=== PATIENT | male | born 1960 | race Caucasian/White ===

== ENCOUNTER 2017-08-01 21:12 | Inpatient (IN) | payer BC, MEDICAID, SELFPAY ==
[2017-08-01 21:14] VITALS: BP 128/92; PULSE 108; RESP 20; TEMP 38; O2SAT 90; BMI 21.3
--- NOTE | 2017-08-01 21:28 | EKG12_ITS ---
Test Reason : CP Blood Pressure : / mmHG Vent. Rate : 108 BPM Atrial Rate : 108 BPM P-R Int : 124 ms QRS Dur : 086 ms QT Int : 318 ms P-R-T Axes : 061 013 065 degrees QTc Int : 426 ms Sinus tachycardia Otherwise normal ECG Confirmed by CHICHI LORENZO, BREE ([id number]), telegraph editor DORINDA SMALLWOOD ([id number] on 08/04/2017 12:51:03 PM Referred By: JAMES Confirmed By:BREE CADET MD
--- NOTE | 2017-08-01 21:28 | RAD_ITS ---
STUDY: X-RAY CHEST REASON FOR EXAM: Male, 57 years old. Fever and cough. TECHNIQUE: Frontal and lateral views of the chest. COMPARISON: None. FINDINGS: Normal lung volumes. Poorly defined increased density in both lung bases, right worse than left and most pronounced on the lateral view. Findings are consistent with atelectasis or infiltrates. No effusions. Normal size heart. Normal mediastinum and delia. Normal visualized pulmonary arteries. Normal visualized aortic arch and descending thoracic aorta. Normal visualized thoracic spine. Normal visualized ribs, clavicles, and shoulders. There is no demonstrated abnormality of the visualized soft tissue structures of the upper abdomen. RAD/Chest PA and Lateral IMPRESSION: Poorly defined increased density in both lung bases, right worse than left and most pronounced on the lateral view. Findings are consistent with atelectasis or infiltrates. Electronically Signed: Valentin Michaud MD at 22:18 EDT , Service support ,
[2017-08-01 21:39] VITALS: PULSE 102; RESP 16
[2017-08-01] MEDS: Ipratropium/Albuterol Sulfate 3 ML AMPUL.NEB INHALATION (21:39)
[2017-08-01 21:47] VITALS: BP 127/79; PULSE 110; RESP 18; O2SAT 93
[2017-08-01] MEDS: 0.9% Normal Saline 1,000 ML 999 ML IV (21:53)
[2017-08-01] MEDS: MethylPREDNISolone 125 MG/2 ML Vial IV (21:53)
[2017-08-01 22:09] LABS: Absolute Lymphocyte Count 1.58 X10^3/ul (0.83-4.51); Absolute Neutrophil Count 11.6 X10^3/uL (2.0-7.7); Basophil# 0.02 X10^3/uL; Basophil% 0.1 % (0-1); Hematocrit 41.2 % (40-54); Hemoglobin 13.9 g/dl (13.0-16.5); Lymphocyte # 1.58 X10^3/ul (4.0); Mean Corp Hgb Conc 33.7 g/gl (32-36); Mean Corpuscular Hgb 29.6 pg (27.0-32.0); Mean Corpuscular Volume 87.7 fL (80-94); Mean Platelet Vol. 11.1 fl (6.2-12.0); Monocyte# 1.11 X10^3/uL; Monocyte% 7.8 % (0-10); Neutrophil # 11.56 X10^3/uL (2.7-7.7); Neutrophil % 80.8 % (47-70); POSITIVE COUNT NO; POSITIVE DIFFERENTIAL NO; POSITIVE MORPHOLOGY NO; Platelet Count 192 K/mm3 (150-450); RBC Distribution Width CV 12.2 % (11.6-14.6); RBC Distribution Width SD 38.8 fl (35.1-43.9); White Blood Count 14.3 K/mm3 (4.4-11.0)
[2017-08-01 22:35] VITALS: BP 127/82; PULSE 103; RESP 20; O2SAT 93
[2017-08-01 22:39] LABS: Anion Gap 9 (5-15); BUN 25 mg/dL (7-18); BUN/Creat Ratio 19.5 RATIO (10-20); Calcium,Total 8.5 mg/dL (8.5-10.1); Chloride 102 mmol/L (98-107); Creatinine, Serum 1.28 mg/dL (0.70-1.30); EST Glomerular Filtration Rate 62 mL/min (>60); Est Glom Filt Rate - Afr Amer 75 mL/min (>60); Estimated Creatinine Clearance 62.16 ml/min; Glucose 141 mg/dL (74-106); Potassium 3.5 mmol/L (3.5-5.1); Sodium Level 137 mmol/L (136-145)
[2017-08-01 22:42] LABS: Lactic Acid 1.4 mmol/L (0.4-2.0)
[2017-08-01] MEDS: Ceftriaxone 1 GM/50 ML BAG IV (23:12)
[2017-08-01 23:14] VITALS: BP 121/77; PULSE 103; RESP 15; O2SAT 92
--- NOTE | 2017-08-01 23:33 | PCM.HP.STD ---
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 He had intermittent fevers chills with highest 103 Fahrenheit today. Patient also complained of sore throat. In ED, was noted to have tachycardia; 110/min, tachypnea; 22/min and hypoxia 93% on 2 L of oxygen. Chest x-ray reviewed and shows bilateral densities at both lung base, right worse than left. EKG mild sinus tachycardia at 108/min with nonspecific ST-T changes. QTc 426 ms. [] Past Medical History Past Medical History (Chronic Problems): Chronic Problems COPD/asthmatic bronchitis (Chronic) Chronic sinusitis (Chronic) Anxiety and depression (Chronic) Allergies aspirin Allergy (Verified 08/01/17 21:17) asthmatic reaction Home Medications: Ambulatory Orders Medication Instructions Recorded Albuterol Inhaler [Ventolin Hfa 1 - 2 puff INHALATION Q4H PRN PRN 08/17/16 (SP)] Lamotrigine [Lamictal] 200 mg PO DAILY 08/17/16 Quetiapine Fumarate [Seroquel Xr] 200 mg PO QHS 08/17/16 Oxycodone HCl/Acetaminophen 1 - 2 tablet PO Q4H PRN PRN #30 08/19/16 [Percocet 5/325] tablet Doxepin HCl 50 mg PO QHS PRN PRN 08/01/17 Fluticasone/Vilanterol [Breo 1 puff INHALATION DAILY 08/01/17 Ellipta 200-25 Mcg INH] Smoking Status: Never smoker - *Family History Paternal History Items: No pertinent history Review of Systems Constitutional: Reports: Chills, Fever, Malaise, Weakness, Fatigue. Denies: Weight Change HEENT: Reports: Sinus Congestion, Sinus Drainage, Sore Throat. Denies: Head Aches Cardiovascular: Denies: Chest Pain, Palpitations Respiratory: Reports: Cough, Shortness of breath at rest, Shortness of breath upon exertion, Sputum production Gastrointestinal: Denies: Abdominal Pain, Nausea, Vomiting Genitourinary: Denies: Dysuria Musculoskeletal: Denies: Joint Pain, Joint Tenderness Skin: Denies: Rash, Wounds Neurological: Denies: Numbness, Tingling, Focal weakness Psychiatric: Denies: Anxiety, Depression, Homicidal Ideations, Suicidal Ideations Hematologic/ Lymphatic: Denies: Easy Bruising, Easy Bleeding VTE Information - Inpt Only VTE Present on Admission: No VTE Mechan Device Prophylaxis: SCD's VTE Pharm Prophylaxis ordered?: Yes Patient Problems: Active and Suspected Problems COPD exacerbation (Acute) Bilateral lung bases CAP (Acute) - Physical Exam General: Alert, Oriented x3, Cooperative HEENT: Atraumatic, PERRLA, EOMI, Normocephalic Oral: Dry Mucosa, - - No oral/pharyngeal erythema or exudate Neck: Supple, No JVD, Negative Carotid Bruits Lungs: Diminished, Rhonchi, Short of Breath, Tachypneic, Wheezes Cardiovascular: Regular Rhythm, Normal S1, Normal S2, No murmurs, Tachycardic Abdomen: Bowel Sounds Present, Soft, Non Tender, Non-Distended Extremities: No edema, Capillary Refill Less than 3 Seconds Skin: No rashes, No breakdown Musculoskeletal: No Tenderness to Palpation of Joints or Extremities Neurological: Cranial nerves II-XII grossly intact Psych/Mental Status: Normal Affect, Appropriate Vital Signs Temp Pulse Resp BP Pulse Ox 100.4 F H 103 H 15 121/77 H 92 08/01/17 21:14 08/01/17 23:14 08/01/17 23:14 08/01/17 23:14 08/01/17 23:14 Oxygen Flow Rate (L/min) 2 Oxygen Delivery Method Nasal Cannula Weight: 148 lb 9.465 oz Body Mass Index (BMI) 21.3 Microbiology Past 72 Hours 08/01/17 21:30 Influenza Types A,B Direct FA (EMILY) - Final Mucosa - Nose Laboratory Tests Past 24 Hrs 08/01/17 08/01/17 08/01/17 21:55 21:55 21:55 WBC 14.3 H RBC 4.70 Hgb 13.9 Hct 41.2 MCV 87.7 MCH 29.6 MCHC 33.7 RDW 12.2 RDW Differential 38.8 Plt Count 192 MPV 11.1 Immature Gran % (Auto) 0.300 Neut % (Auto) 80.8 H Lymph % (Auto) 11.0 L [place] % (Auto) 7.8 Eos % (Auto) 0.0 Baso % (Auto) 0.1 Absolute Neuts (auto) 11.6 H Absolute Lymphs (auto) 1.58 Total Counted Not Reportable Sodium 137 Potassium 3.5 Chloride 102 Carbon Dioxide 26.0 Anion Gap 9 BUN 25 H Creatinine 1.28 Estim Creat Clear Calc 62.16 Est GFR (MDRD) Af Amer 75 Est GFR (MDRD) Non-Af 62 BUN/Creatinine Ratio 19.5 Glucose 141 H Lactic Acid 1.4 Calcium 8.5 Assessment/Plan Active and Suspected Problems COPD exacerbation (Acute) Bilateral lung bases CAP (Acute) The patient is a 57 year old M with history of COPD/asthmatic bronchitis and chronic sinusitis, 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 He had intermittent fevers chills with highest 103 Fahrenheit today. Patient also complained of sore throat. In ED, was noted to have tachycardia; 110/min, tachypnea; 22/min and hypoxia 93% on 2 L of oxygen. Chest x-ray reviewed and shows bilateral densities at both lung base, right worse than left. EKG mild sinus tachycardia at 108/min with nonspecific ST-T changes. QTc 426 ms. 1. Acute hypoxic respiratory failure secondary to bilateral lung bases community acquired pneumonia/and COPD exacerbation: Patient is being admitted on the regular floor. Oxygen therapy as per protocol. 2. SIRS ( tachycardia; 110/min, tachypnea; 22/min and hypoxia 93% on 2 L of oxygen, leukocytosis with left shift) due to bilateral lung bases, community acquired pneumonia: Lactic acid is normal. Patient started on IV Rocephin and Zithromax. Patient is also on anti-depression medications including Seroquel DAILY and doxepin as needed for insomnia. QTc is 426 ms. EKG ordered for tomorrow evening. If QTC prolongation, discontinue Zithromax and start Doxy. Pneumonia workup ordered including blood cultures ?2, sputum culture and urinary antigens. Influenza a and B are negative. 3. COPD exacerbation with history of COPD/asthmatic bronchitis: On bronchodilator DuoNeb, scheduled every 4 hourly and albuterol as needed. On IV Solu-Medrol. Incentive spirometry and chest physiotherapy and Mucinex. Hypoglycemia 141: A1c tomorrow a.m. 4. History of anxiety and depression: On Seroquel and doxepin as needed as mentioned above DVT prophylaxis: Lovenox and bilateral SCDs. [] Microbiology Past 72 Hours 08/01/17 21:30 Mucosa - Nose Influenza Types A,B Direct FA (EMILY) - Final Laboratory Results 08/01/17 21:55: WBC 14.3 H, RBC 4.70, Hgb 13.9, Hct 41.2, MCV 87.7, MCH 29.6, MCHC 33.7, RDW 12.2, RDW Differential 38.8, Plt Count 192, MPV 11.1, Immature Gran % (Auto) 0.300, Neut % (Auto) 80.8 H, Lymph % (Auto) 11.0 L, [place] % (Auto) 7.8, Eos % (Auto) 0.0, Baso % (Auto) 0.1, Absolute Neuts (auto) 11.6 H, Absolute Lymphs (auto) 1.58, Total Counted Not Reportable 08/01/17 21:55: Sodium 137, Potassium 3.5, Chloride 102, Carbon Dioxide 26.0, Anion Gap 9, BUN 25 H, Creatinine 1.28, Estim Creat Clear Calc 62.16, Est GFR (MDRD) Af Amer 75, Est GFR (MDRD) Non-Af 62, BUN/Creatinine Ratio 19.5, Glucose 141 H, Calcium 8.5 08/01/17 21:55: Lactic Acid 1.4 Clinical Impression(s) from Imaging Studies Chest X-Ray 08/01/17 21:28 IMPRESSION: Poorly defined increased density in both lung bases, right worse than left and most pronounced on the lateral view. Findings are consistent with atelectasis or infiltrates. This note was generated with [employer] dictation software. Every effort was made to ensure accuracy, however computerized other sales support worker mistakes may persist. Code Visit Inpatient E&M: 02909 Subs Hosp L3
[2017-08-01 23:36] VITALS: BP 121/77; PULSE 103; RESP 20; O2SAT 92
[2017-08-01] MEDS: QUEtiapine 100 MG Tablet 200 MG PO (23:50)
--- NOTE | 2017-08-01 23:50 | ED.VISSUMM ---
- ER Visit Summary Date of Service: 08/01/17 Chief Complaint: Cough History of Present Illness: The patient is a 57 M who goes to [facility]. He sees Dr. Borges, neurology. He reports that he has a cough began approximately 1 week ago. Is productive of clear sputum without blood. He reports he had a fever to 103?. Is also had chills and sweats. Reports that he has moderate to severe shortness of breath and has been wheezing. He is using his inhaler with mild and transient relief. States he has a sore throat is 2 out of 10 severity and generalized weakness. Also complains of myalgias. Physical Examination: Vitals: 100.4, 127/82, 103, 20, 90% on room air which is hypoxic. General: Well-nourished and well-developed. Head: Normocephalic atraumatic. Neck: Supple, no lymphadenopathy. No JVD. Nontender. Cardiovascular: Tachycardic regular rhythm. No murmurs. Respiratory: No respiratory distress. Mild wheezing bilaterally with decreased air movement. Abdominal: Soft, nontender, nondistended, normal bowel sounds. No guarding, rebound, or peritoneal signs. Back: Nontender. Extremities: Nontender, no edema. Skin: Normal color, no rash. Neurologic: Alert and oriented ?3. Cranial nerves II through XII are intact. Normal strength and sensation. Psych: Normal affect. Test Results: Chest x-ray shows bilateral lower lobe infiltrates right greater than left. EKG sinus tachycardia [address] changes. Influenza is negative. Lactic acid is 1.4. Chem-7 is more for BUN of 25 and glucose 141. CBC is marked for white count of 14.3 with 81 segmented neutrophils and 11 lymphocytes. Emergency Department Course and Treatment: She was treated albuterol Atrovent aerosols. He is given Solu-Medrol IV. Is given Rocephin and Zithromax IV. He is resting comfortably. Treatment Plan: The patient was discussed with Dr. Saunders. He will be admitted to the hospital for further relation and treatment. Disposition: Admitted in improved condition. Impression: 1. Pneumonia, community-acquired. 2. Hypoxia. This note was generated with [employer]ation software. It may contain incorrect words, spelling, and punctuation that were not noted in review of the chart prior to signing ED Disposition - Plan for ED Patient: Chief Complaint: General Illness
[2017-08-02] VITALS (12 sets, daily range): BP systolic 109–140; BP diastolic 68–81; PULSE 66–98; RESP 14–20; TEMP 36.3–37.2; O2SAT 93–98; BMI 21.3
[2017-08-02] MEDS: Enoxaparin 40 MG/0.4 ML Syringe SC (01:04)
[2017-08-02] MEDS: 0.9% Normal Saline 1,000 ML 100 ML IV (01:05)
[2017-08-02 01:07] LABS: Color, Urine Yellow (Yellow); Glucose, Dipstick 50 mg/dl (Normal); Ketone-Dipstick Negative (Negative); Leukocyte Esterase-Dipstick Negative /ul (Negative); Nitrite-Dipstick Negative (Negative); Occult Blood-Urine Negative /ul (Negative); Protein-Dipstick Negative (Negative); Urine Bilirubin Dipstick Negative (Negative); Urine Clarity Clear (Clear); Urine Urobilinogen Normal (Normal); Urine pH 6.5 (5.0 - 8.0)
[2017-08-02] MEDS: Ipratropium/Albuterol Sulfate 3 ML AMPUL.NEB INHALATION ×4 (06:38→19:41)
--- NOTE | 2017-08-02 09:08 | PCM.PN.HOSP ---
Patient Problems: Active and Suspected Problems COPD exacerbation (Acute) Bilateral lung bases CAP (Acute) Subjective: Patient with no acute events since admission per self and per nursing report. He states that he does feel improved since initial presentation with less coughing and less shortness of breath. He denies being on oxygen at home baseline. He does follow with pulmonary at [facility]. He denies any tobacco use history but states he was raised in a restaurant with heavy tobacco smoke around him. Patient denies fevers, chills, nausea, emesis, abdominal pain, chest pain or recurrent or worsened dyspnea. Objective: Physical Examination: General: awake, alert, oriented x 3 and cooperative, seated upright in bed in no apparent distress. Skin: normal color, turgor, no icterus, cyanosis. HEENT: AT/NC, EOMI, PERRLA, mildly dry MM. Lungs: Severely diffusely diminished, > bases, mild to moderate effort, no rales, ronchi or wheezing. Heart: Regular rate and rhythm; no gallop, rub audible. Abdomen: soft, NTTP, ND, normal BS. Extremities: no cyanosis, clubbing, or edema. Neurological: patient awake, alert, oriented x 3; cognitive function intact; pupils equally reactive to light and accomodation; cranial nerves II-XII grossly normal, moving all 4 extremities, no focal deficits, strength moderately globally decreased secondary to acute presentation. Psychiatric: affect appears fatigued, no acute evidence of depressive or anxiety feelings. Vitals/I&O's: Vital Signs Temp Pulse Resp BP Pulse Ox 97.4 F L 98 18 109/75 95 08/02/17 06:00 08/02/17 06:38 08/02/17 06:38 08/02/17 06:00 08/02/17 06:38 Oxygen Flow Rate (L/min) 1 Oxygen Delivery Method Nasal Cannula Weight: 148 lb 9.465 oz Body Mass Index (BMI) 21.3 Intake and Output for Last 24 Hours 07/31/17 08/01/17 08/02/17 23:59 23:59 23:59 Intake Total 638 / 638 Balance 638 / 638 Microbiology Past 72 Hours 08/02/17 00:50 Interface Orders Legionella Antigen - Final 08/02/17 00:50 Interface Orders Streptococcus pneumoniae Antigen (M - Final Laboratory Results 08/02/17 00:50: Urine Color Yellow, Urine Clarity Clear, Urine pH 6.5, Ur Specific [place] 1.010, Urine Protein Negative, Urine Glucose (UA) 50 H, Urine Ketones Negative, Urine Occult Blood Negative, Urine Nitrite Negative, Urine Bilirubin Negative, Urine Urobilinogen Normal, Ur Leukocyte Esterase Negative Current Medications Acetaminophen (Tylenol) 650 mg PO Q4H PRN PRN PRN Reason: Fever/pain Al Hydroxide/Mg Hydroxide (Mylanta Ii) 30 ml PO Q6H PRN PRN PRN Reason: Gastric Burning Albuterol Sulfate (Ventolin Aerosols) 2.5 mg INHALATION Q2H PRN PRN PRN Reason: SHORTNESS OF BREATH Albuterol/Ipratropium (Duoneb) 3 ml INHALATION Q4HWA.RT [facility] Last Admin: 08/02/17 06:38 Dose: 3 ml Benzonatate (Tessalon Perle) 200 mg PO TID [facility] Last Admin: 08/02/17 06:09 Dose: Not Given Bisacodyl (Dulcolax) 10 mg RECTAL DAILY PRN PRN PRN Reason: Constipation Docusate Sodium (Colace) 200 mg PO BID PRN PRN PRN Reason: Constipation Enoxaparin Sodium (Lovenox) 40 mg SC DAILY [facility] Last Admin: 08/02/17 01:04 Dose: 40 mg Famotidine (Pepcid) 20 mg PO BID [facility] Guaifenesin (Mucinex) 1,200 mg PO BID [facility] Sodium Chloride () 1,000 mls @ 100 mls/hr IV .Q10H [facility] Stop: 08/02/17 10:09 Last Admin: 08/02/17 01:05 Dose: 100 mls/hr Azithromycin 500 mg/ Dextrose 255 mls @ 250 mls/hr IV Q24 [facility] Stop: 08/04/17 11:02 Ceftriaxone Sodium (Rocephin) 1 gm in 50 mls @ 100 mls/hr IV Q24 [facility] Sodium Chloride () 250 mls @ 15 mls/hr IV .[id number] PRN PRN Reason: SALINE FLUSH Lamotrigine (Lamictal) 200 mg PO DAILY [facility] Methylprednisolone (Solu-Medrol) 40 mg IV Q8 [facility] Last Admin: 08/02/17 06:08 Dose: 40 mg Ondansetron HCl (Zofran) 4 mg IV Q8H PRN PRN PRN Reason: NAUSEA Oxycodone HCl (Oxyir) 5 - 10 mg PO Q4H PRN PRN PRN Reason: PAIN Quetiapine Fumarate (Seroquel) 100 mg PO BID [place] Sodium Chloride () 5 - 30 ml IV UD PRN PRN Reason: SALINE FLUSH Medical Necessity - Tobacco Use Smoking Status: Never smoker Tobacco Use: Secondhand Assessment/Plan Active and Suspected Problems COPD exacerbation (Acute) Bilateral lung bases CAP (Acute) The patient is a 57 y/o M w/ PMHx: Notable 2nd Hand Tobacco Exposure Prolonged w/ Chronic COPD/Asthma, Anxiety and Depression/Bipolar Disorder, Chronic Sinusitis who presents to the [facility] ED on 08/01/17 with history of onset 1 week progressively worsening dyspnea, mildly productive cough with wheezing in addition to intermittent fevers and chills. (1) Acute Hypoxic Respiratory Failure secondary to Acute on Chronic COPD/Asthma Exacerbation secondary to Community Acquired Pneumonia: Initial ED presentation w/ hypoxia, increased RR, accessory muscle usage, respiratory distress evident. CXR in the ED w/ bilateral lower lobe, right greater than left infiltrates concerning for pneumonia. Admission CBC w/ WBC 14.3 with L shift. Admitted to [place], maintained on oxygen with wean as tolerated to room air/home oxygen supplementation, continue ATC duonebs, PRN albuterol, maintain on IV solumedrol with oral transition 08/03/17 AM pending re-evaluation, maintain on IV Rocephin and Azithromycin, HOB, IS parameters w/ pending sputum cultures, negative urine antigens, negative rapid flu, pending respiratory viral panel. Bld cx x 2 obtained in the ED. Will obtain AM oxygenation trial for discharge once clinically appropriate. (2) Anxiety and Depression/Bipolar Disorder: Maintain on home regimen seroquel, lamictal regimen. 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 (4) GERD: Famotidine. (5) DVT Prophylaxis: SCDs, lovenox. Code Visit Inpatient E&M: 96189 Subs Hosp L2
--- NOTE | 2017-08-02 09:16 | PN_ITS ---
Patient Problems: Active and Suspected Problems COPD exacerbation (Acute) Bilateral lung bases CAP (Acute) Subjective: Patient with no acute events since admission per self and per nursing report. He states that he does feel improved since initial presentation with less coughing and less shortness of breath. He denies being on oxygen at home baseline. He does follow with pulmonary at [facility]. He denies any tobacco use history but states he was raised in a restaurant with heavy tobacco smoke around him. Patient denies fevers, chills, nausea, emesis, abdominal pain , chest pain or recurrent or worsened dyspnea. Objective: Physical Examination: General: awake, alert, oriented x 3 and cooperative, seated upright in bed in no apparent distress. Skin: normal color, turgor, no icterus, cyanosis. HEENT: AT/NC, EOMI, PERRLA, mildly dry MM. Lungs: Severely diffusely diminished, > bases, mild to moderate effort, no rales , ronchi or wheezing. Heart: Regular rate and rhythm; no gallop, rub audible. Abdomen: soft, NTTP, ND, normal BS. Extremities: no cyanosis, clubbing, or edema. Neurological: patient awake, alert, oriented x 3; cognitive function intact; pupils equally reactive to light and accomodation; cranial nerves II-XII grossly normal, moving all 4 extremities, no focal deficits, strength moderately globally decreased secondary to acute presentation. Psychiatric: affect appears fatigued, no acute evidence of depressive or anxiety feelings. Vitals/I&O's: Vital Signs Temp Pulse Resp BP Pulse Ox 97.4 F L 98 18 109/75 95 08/02/17 06:00 08/02/17 06:38 08/02/17 06:38 08/02/17 06:00 08/02/17 06:38 Oxygen Flow Rate (L/min) 1 Oxygen Delivery Method Nasal Cannula Weight: 148 lb 9.465 oz Body Mass Index (BMI) 21.3 Intake and Output for Last 24 Hours 07/31/17 08/01/17 08/02/17 23:59 23:59 23:59 Intake Total 638 / 638 Balance 638 / 638 Microbiology Past 72 Hours 08/02/17 00:50 Interface Orders Legionella Antigen - Final 08/02/17 00:50 Interface Orders Streptococcus pneumoniae Antigen (M - Final Laboratory Results 08/02/17 00:50: Urine Color Yellow, Urine Clarity Clear, Urine pH 6.5, Ur Specific [place] 1.010, Urine Protein Negative, Urine Glucose (UA) 50 H, Urine Ketones Negative, Urine Occult Blood Negative, Urine Nitrite Negative, Urine Bilirubin Negative, Urine Urobilinogen Normal, Ur Leukocyte Esterase Negative Current Medications Acetaminophen (Tylenol) 650 mg PO Q4H PRN PRN PRN Reason: Fever/pain Al Hydroxide/Mg Hydroxide (Mylanta Ii) 30 ml PO Q6H PRN PRN PRN Reason: Gastric Burning Albuterol Sulfate (Ventolin Aerosols) 2.5 mg INHALATION Q2H PRN PRN PRN Reason: SHORTNESS OF BREATH Albuterol/Ipratropium (Duoneb) 3 ml INHALATION Q4HWA.RT [facility] Last Admin: 08/02/17 06:38 Dose: 3 ml Benzonatate (Tessalon Perle) 200 mg PO TID [facility] Last Admin: 08/02/17 06:09 Dose: Not Given Bisacodyl (Dulcolax) 10 mg RECTAL DAILY PRN PRN PRN Reason: Constipation Docusate Sodium (Colace) 200 mg PO BID PRN PRN PRN Reason: Constipation Enoxaparin Sodium (Lovenox) 40 mg SC DAILY [facility] Last Admin: 08/02/17 01:04 Dose: 40 mg Famotidine (Pepcid) 20 mg PO BID [facility] Guaifenesin (Mucinex) 1,200 mg PO BID [facility] Sodium Chloride () 1,000 mls @ 100 mls/hr IV .Q10H [facility] Stop: 08/02/17 10:09 Last Admin: 08/02/17 01:05 Dose: 100 mls/hr Azithromycin 500 mg/ Dextrose 255 mls @ 250 mls/hr IV Q24 [facility] Stop: 08/04/17 11:02 Ceftriaxone Sodium (Rocephin) 1 gm in 50 mls @ 100 mls/hr IV Q24 [facility] Sodium Chloride () 250 mls @ 15 mls/hr IV .[id number] PRN PRN Reason: SALINE FLUSH Lamotrigine (Lamictal) 200 mg PO DAILY [facility] Methylprednisolone (Solu-Medrol) 40 mg IV Q8 [facility] Last Admin: 08/02/17 06:08 Dose: 40 mg Ondansetron HCl (Zofran) 4 mg IV Q8H PRN PRN PRN Reason: NAUSEA Oxycodone HCl (Oxyir) 5 - 10 mg PO Q4H PRN PRN PRN Reason: PAIN Quetiapine Fumarate (Seroquel) 100 mg PO BID [facility] Sodium Chloride () 5 - 30 ml IV UD PRN PRN Reason: SALINE FLUSH Medical Necessity - Tobacco Use Smoking Status: Never smoker Tobacco Use: Secondhand Assessment/Plan Active and Suspected Problems COPD exacerbation (Acute) Bilateral lung bases CAP (Acute) The patient is a 57 y/o M w/ PMHx: Notable 2nd Hand Tobacco Exposure Prolonged w / Chronic COPD/Asthma, Anxiety and Depression/Bipolar Disorder, Chronic Sinusitis who presents to the [facility] ED on 08/01/17 with history of onset 1 week progressively worsening dyspnea, mildly productive cough with wheezing in addition to intermittent fevers and chills. (1) Acute Hypoxic Respiratory Failure secondary to Acute on Chronic COPD/Asthma Exacerbation secondary to Community Acquired Pneumonia: Initial ED presentation w/ hypoxia, increased RR, accessory muscle usage, respiratory distress evident. CXR in the ED w/ bilateral lower lobe, right greater than left infiltrates concerning for pneumonia. Admission CBC w/ WBC 14.3 with L shift. Admitted to [place] , maintained on oxygen with wean as tolerated to room air/home oxygen supplementation, continue ATC duonebs, PRN albuterol, maintain on IV solumedrol with oral transition 08/03/17 AM pending re-evaluation, maintain on IV Rocephin and Azithromycin, HOB, IS parameters w/ pending sputum cultures, negative urine antigens, negative rapid flu, pending respiratory viral panel. Bld cx x 2 obtained in the ED. Will obtain AM oxygenation trial for discharge once clinically appropriate. (2) Anxiety and Depression/Bipolar Disorder: Maintain on home regimen seroquel, lamictal regimen. 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 (4) GERD: Famotidine. (5) DVT Prophylaxis: SCDs, lovenox. Code Visit Inpatient E&M: 11835 Subs Hosp L2
[2017-08-02] MEDS: Ceftriaxone 1 GM/50 ML BAG IV (09:41)
[2017-08-02] MEDS: Famotidine 20 MG Tablet PO ×2 (09:42→21:59)
[2017-08-02] MEDS: lamoTRIgine 100 MG Tablet 200 MG PO (09:42)
[2017-08-02] MEDS: guaiFENesin 1,200 MG Tablet 1200 MG PO ×2 (09:42→21:59)
--- NOTE | 2017-08-02 13:26 | CASEMGMT ---
See RN CM Assessment Link. DC PLAN: home -no dc needs identified @ this time. Kadi IRIZARRYN RN ACM
[2017-08-02] MEDS: Benzonatate 100 MG Capsule 200 MG PO ×2 (18:50→21:59)
--- NOTE | 2017-08-02 20:13 | EKG12_ITS ---
Test Reason : MED Blood Pressure : / mmHG Vent. Rate : 077 BPM Atrial Rate : 077 BPM P-R Int : 136 ms QRS Dur : 092 ms QT Int : 380 ms P-R-T Axes : 070 027 056 degrees QTc Int : 430 ms Sinus rhythm with Premature supraventricular complexes Otherwise normal ECG When compared with ECG of 01-AUG-2017 21:25, MANUAL COMPARISON REQUIRED, DATA IS UNCONFIRMED Confirmed by CHICHI LORENZO, BREE ([id number]), commissioning editor DORINDA SMALLWOOD ([id number]) on 08/11/2017 3:53:59 PM Referred By: STONEY Confirmed By:BREE CADET MD
[2017-08-02] MEDS: 0.9% NaCl Peripheral Flush Adult/Peds IV (21:59)
[2017-08-03 03:18] VITALS: BP 116/70; PULSE 72; RESP 16; TEMP 36.5; O2SAT 96
[2017-08-03] MEDS: 0.9% NaCl Peripheral Flush Adult/Peds IV ×2 (06:19→09:12)
[2017-08-03] MEDS: Benzonatate 100 MG Capsule 200 MG PO (06:19)
[2017-08-03] MEDS: Ipratropium/Albuterol Sulfate 3 ML AMPUL.NEB INHALATION ×2 (07:34→11:13)
[2017-08-03 07:36] VITALS: PULSE 79; RESP 16; O2SAT 92
--- NOTE | 2017-08-03 08:31 | PCM.DC ---
- Discharge Diagnoses Current Active Problems: Current Active and Chronic Problems (1) Acute Hypoxic Respiratory Failure secondary to Acute on Chronic COPD/Asthma Exacerbation secondary to Community Acquired Pneumonia and Human Metapneumo viral infection (2) Anxiety and Depression (3) History of Prolonged 2nd Hand Tobacco Exposure (4) GERD You will use the following diet at home:: No restrictions Your food should be the consistency of: Regular Your liquids should be the consistency of: Regular/Thin Discharge Activity: - - Avoid aggressive activity until completed steroid taper and antibiotic therapy as well as re-evaluation per your primary care physician and pulmonary medicine. May resume sexual activity in: 10-14 days Call your doctor if you observe: Fever of 101 or Higher, Inability to urinate, Inability to have a bowel movement, Shortness of breath, Dizziness, Fainting spells, Chest pain, Uncontrolled pain Instructions: What is COPD?, Treatment for COPD, Discharge Instructions: COPD, What Is Pneumonia?, Preventing Pneumonia, Pneumonia Treatment Additional Instructions: Given your symptoms had been ongoing for ~ 1 week prior to presentation, you are likely past the contagious period in regards to the Human metapneumo viral infection; however, please be cautious and if you are still coughing avoid direct contact given your pneumonia and COPD exacerbation concurrently. Please continue antibiotic therapy as well as steroid taper until completed. You may discontinue the coughing regimen if your cough subsides. You may use the albuterol nebulized medication as needed every 2 hours and continue the duoneb instead of your home inhaler x 1 week and then may transition back. Allergies/Adverse Reactions: Allergies aspirin Allergy (Verified 08/01/17 21:17) asthmatic reaction Medications to take at Discharge Albuterol Inhaler [Ventolin Hfa] 1 - 2 puff INHALATION Q4H PRN PRN 08/17/16 Lamotrigine [Lamictal] 200 mg PO DAILY 08/17/16 Quetiapine Fumarate [Seroquel XR] 200 mg PO QHS 08/17/16 Oxycodone HCl/Acetaminophen [Percocet 5-325] 1 - 2 tablet PO Q4H PRN PRN #30 tablet 08/19/16 Doxepin HCl 50 mg PO QHS PRN PRN 08/01/17 Fluticasone/Vilanterol [Breo Ellipta 200-25 Mcg INH] 1 puff INHALATION DAILY 08/01/17 Albuterol Aerosols [Ventolin Aerosols] 2.5 mg INHALATION Q2H PRN PRN #1 box 08/03/17 Azithromycin [Zithromax Tri-Iván] 500 mg PO DAILY #1 tab 08/03/17 Benzonatate [Tessalon Perle] 200 mg PO TID #60 cap 08/03/17 Cefdinir [Omnicef [equiv]] 300 mg PO Q12H #10 cap 08/03/17 Guaifenesin [Mucinex] 1,200 mg PO BID #20 tab 08/03/17 Ipratropium/Albuterol Sulfate [Duoneb] 3 ml INHALATION Q4HWA.RT #1 box 08/03/17 Nebulizer [Lc Plus] 1 ea UD #1 ea 08/03/17 Prednisone 10 mg PO UD #30 tab 08/03/17 The following prescriptions were given: Albuterol Aerosols [Ventolin Aerosols] 2.5 mg INHALATION Q2H PRN PRN #1 box PRN Reason: SHORTNESS OF BREATH Ipratropium/Albuterol Sulfate [Duoneb] 3 ml INHALATION Q4HWA.RT #1 box Azithromycin [Zithromax Tri-Iván] 500 mg PO DAILY #1 tab Cefdinir [Omnicef [equiv]] 300 mg PO Q12H #10 cap Nebulizer [Lc Plus] 1 ea UD #1 ea Prednisone 10 mg PO UD #30 tab Guaifenesin [Mucinex] 1,200 mg PO BID #20 tab Benzonatate [Tessalon Perle] 200 mg PO TID #60 cap Primary Care Physician: Care Physician,No Primary [Primary Care Provider] - Please follow up with your Primary Care Physician in: Follow-up with your primary care within 3-5 days. Please Follow Up With: Thuan Borges MD When: Please follow-up within 1 week to review admission, assure improving. Proposed Discharge Date: 08/03/17
--- NOTE | 2017-08-03 08:45 | DS.PCM_ITS ---
Discharge Date and Diagnosis - Problem List Patient Problems: Active and Suspected Problems COPD exacerbation (Acute) Bilateral lung bases CAP (Acute) Date of Admission: 08/01/17 Date of Discharge: 08/03/17 - Primary Discharge Diagnosis Active and Suspected Problems (1) Acute Hypoxic Respiratory Failure secondary to Acute on Chronic COPD/Asthma Exacerbation secondary to Community Acquired Pneumonia and Human Metapneumo viral infection (2) Anxiety and Depression (3) History of Prolonged 2nd Hand Tobacco Exposure (4) GERD - Secondary Discharge Diagnosis Chronic Problems COPD/asthmatic bronchitis (Chronic) Chronic sinusitis (Chronic) Anxiety and depression (Chronic) Hospital Course and Treatment Operations: None Procedures: EKG Summary of Care Provided: The patient is a 57 y/o M w/ PMHx: Notable 2nd Hand Tobacco Exposure Prolonged w / Chronic COPD/Asthma, Anxiety and Depression/Bipolar Disorder, Chronic Sinusitis who presented to the [facility] ED on 08/01/17 with history of onset 1 week progressively worsening dyspnea, mildly productive cough with wheezing in addition to intermittent fevers and chills. Initial ED presentation w/ hypoxia, increased RR, accessory muscle usage, respiratory distress evident. CXR in the ED w/ bilateral lower lobe, right greater than left infiltrates concerning for pneumonia. Admission CBC w/ WBC 14.3 with L shift. Admitted to [place], maintained on oxygen with wean as tolerated to room air/home oxygen supplementation, continued ATC duonebs, PRN albuterol, maintain on IV solumedrol with oral transition upon discharge, maintained on IV Rocephin and Azithromycin w/ transition to oral upon discharge, HOB, IS parameters, sputum cx obtained but not adequate specimen, negative urine antigens, negative rapid flu, respiratory viral panel resulted w/ + human metapneumo virus. Oxygenation assessment with no need for home O2. Given severity of appearance and underlying pulmonary disease w/ viral infection and COPD exacerbation concurrently with PNA, patient given rx for nebulizer machine and nebulizer regimen. Patient discharged to home in improved condition with ongoing abx therapy, steroid taper, aerosols treatments with planned follow-up with Pulmonary and recommended PCP. DAY OF DISCHARGE PROGRESS NOTE: Subjective: Patient without acute event overnight per self and nursing report. Patient off oxygen, improved dyspnea, able to ambulate without severe dyspnea recurrence. Less coughing. Patient denies fever, chills, nausea, emesis, abdominal pain, chest pain. Patient agreeable to discharge to home. Patient will be discharged with follow-up with encouraged primary care physician follow- up within 3-5 days in addition to Pulmonary follow-up within 1-2 weeks. Objective: T 98.7, heart rate 89, BP 121/73, respiratory rate 16, 92% on room air with ambulation oxygenation 90% on room air. Physical Examination: General: awake, alert, oriented x 3 and cooperative, seated upright in bed in no apparent distress. Skin: normal color, turgor, no icterus, cyanosis. HEENT: AT/NC, EOMI, PERRLA, improved less dry MM. Lungs: Severely diffusely diminished, > bases, mild to moderate effort, no rales , ronchi or wheezing. Heart: Regular rate and rhythm; no gallop, rub audible. Extremities: no cyanosis, clubbing. Neurological: patient awake, alert, oriented x 3; cognitive function intact; pupils equally reactive to light and accomodation; cranial nerves II-XII grossly normal, moving all 4 extremities. Psychiatric: affect appears normalized, less fatigued, no acute evidence of depressive or anxiety feelings. Assessment and Plan: Please see hospital summary above. Discharge Activity: - - Avoid aggressive activity until completed steroid taper and antibiotic therapy as well as re-evaluation per your primary care physician and pulmonary medicine. May resume sexual activity in: 10-14 days Call your doctor if you observe: Fever of 101 or Higher, Inability to urinate, Inability to have a bowel movement, Shortness of breath, Dizziness, Fainting spells, Chest pain, Uncontrolled pain Home Medications: Medications to take at Discharge Albuterol Inhaler [Ventolin Hfa] 1 - 2 puff INHALATION Q4H PRN PRN 08/17/16 Lamotrigine [Lamictal] 200 mg PO DAILY 08/17/16 Quetiapine Fumarate [Seroquel XR] 200 mg PO QHS 08/17/16 Oxycodone HCl/Acetaminophen [Percocet 5-325] 1 - 2 tablet PO Q4H PRN PRN #30 tablet 08/19/16 Doxepin HCl 50 mg PO QHS PRN PRN 08/01/17 Fluticasone/Vilanterol [Breo Ellipta 200-25 Mcg INH] 1 puff INHALATION DAILY Albuterol Aerosols [Ventolin Aerosols] 2.5 mg INHALATION Q2H PRN PRN #1 box Azithromycin [Zithromax Tri-Iván] 500 mg PO DAILY #1 tab 08/03/17 Benzonatate [Tessalon Perle] 200 mg PO TID #60 cap 08/03/17 Cefdinir [Omnicef [equiv]] 300 mg PO Q12H #10 cap 08/03/17 Guaifenesin [Mucinex] 1,200 mg PO BID #20 tab 08/03/17 Ipratropium/Albuterol Sulfate [Duoneb] 3 ml INHALATION Q4HWA.RT #1 box 08/03/17 Nebulizer [Lc Plus] 1 ea MC UD #1 ea 08/03/17 Prednisone 10 mg PO UD #30 tab 08/03/17 Following Prescrptions Were Given to Patient: Albuterol Aerosols [Ventolin Aerosols] 2.5 mg INHALATION Q2H PRN PRN #1 box PRN Reason: SHORTNESS OF BREATH Ipratropium/Albuterol Sulfate [Duoneb] 3 ml INHALATION Q4HWA.RT #1 box Azithromycin [Zithromax Tri-Iván] 500 mg PO DAILY #1 tab Cefdinir [Omnicef [equiv]] 300 mg PO Q12H #10 cap Nebulizer [Lc Plus] 1 ea UD #1 ea Prednisone 10 mg PO UD #30 tab Guaifenesin [Mucinex] 1,200 mg PO BID #20 tab Benzonatate [Tessalon Perle] 200 mg PO TID #60 cap Primary Care Physician: Care Physician,No Primary [Primary Care Provider] - Please follow up with your Primary Care Physician in: Follow-up with your primary care within 3-5 days. Please Follow Up With: Thuan Borges MD When: Please follow-up within 1 week to review admission, assure improving. Patient Instructions: What is COPD?, What Is Pneumonia?, Preventing Pneumonia, Pneumonia Treatment, Discharge Instructions: COPD, Treatment for COPD Disposition: Home Minutes spent on discharge:: 35 Patient Condition:: Fair Medical Necessity - Tobacco Use Smoking Status: Never smoker Tobacco Use: Secondhand Meaningful Use Info Meaningful Use Diagnoses (Choose all that apply): None applicable Code Visit Inpatient E&M: 62504 Disch Hosp
[2017-08-03 08:57] VITALS: O2SAT 90; O2SAT 92
[2017-08-03] MEDS: Ceftriaxone 1 GM/50 ML BAG IV (09:04)
--- NOTE | 2017-08-03 09:06 | CASEMGMT ---
JON VOGEL received script for nebulizer. JON VOGEL discussed preferrred [employer] company with patient and patient is agreeable to [facility]. JON VOGEL will send referral to [facility] and arrange for deliver to patient's home. Walking oxygen test was completed and patient did not qualify for oxygen. JON VOGEL will continue to follow this patient and plan for a safe discharge.
[2017-08-03] MEDS: Famotidine 20 MG Tablet PO (09:11)
[2017-08-03] MEDS: Enoxaparin 40 MG/0.4 ML Syringe SC (09:12)
[2017-08-03] MEDS: lamoTRIgine 100 MG Tablet 200 MG PO (09:16)
[2017-08-03 09:18] VITALS: BP 121/73; PULSE 89; RESP 16; TEMP 37; O2SAT 92
--- NOTE | 2017-08-03 10:40 | CASEMGMT ---
Physician asked to check w/pt about a PCP. SW spoke w/pt, he states he has a PCP at the [facility] assigned to him, but is not certain who it is. Pt states he see specialists, does not go to PCP. Pt declined a need for a list of PCP's, states if he needs to see a PCP he will call [facility]. No further needs anticipated. WILMER Gibbs, CHIEF LOCK OPERATOR
[2017-08-03 11:14] VITALS: PULSE 89; RESP 16
== END 2017-08-03 12:53 | disposition home or self-care (01) | DRG 871 ==
LOC: ED 21:36 → MS2 23:48
PROVIDERS: Admitting Provider Internal Medicine; Emergency Provider Emergency Medicine; Visit Provider Family Medicine
DX: A41.9 Sepsis, unspecified organism (principal); J96.01 Acute respiratory failure with hypoxia; J12.3 Human metapneumovirus pneumonia; J44.0 Chronic obstructive pulmonary disease with (acute) lower respiratory infection; J45.901 Unspecified asthma with (acute) exacerbation; J44.1 Chronic obstructive pulmonary disease with (acute) exacerbation; Z77.22 Contact with and (suspected) exposure to environmental tobacco smoke (acute) (chronic); J32.9 Chronic sinusitis, unspecified; K21.9 Gastro-esophageal reflux disease without esophagitis; F31.9 Bipolar disorder, unspecified; F41.9 Anxiety disorder, unspecified; Z79.899 Other long term (current) drug therapy
CPT/HCPCS: 71046; 80048; 81002; 83605; 85025; 87040; 87070; 87205; 87449; 87633; 87804; 93005; 94640; 94667; 99285; J7030; J7050; A4216

== ENCOUNTER → 2017-12-23 07:06 | Outpatient (CLI) | payer BC, MEDICAID, SELFPAY ==
--- NOTE | 2017-12-23 07:09 | CT_ITS ---
STUDY: CT MAXILLOFACIAL SINUSES REASON FOR EXAM: Male, 57 years old. Chronic sinusitis since 1999. Multiple sinus infections. Sinus surgery x3. RADIATION DOSAGE (If Supplied By Facility): CTDIvol = ( 33.06 ) mGy, DLP = ( 858.64 ) mGycm TECHNIQUE: The patient was scanned in a multi detector CT scanner. High resolution axial imaging was performed without the administration of intravenous contrast material. Sagittal and coronal images were reconstructed. Individualized dose optimization techniques were used for this CT. COMPARISON: 01/01/2016. FINDINGS: FRONTAL SINUSES: Complete obliteration and opacification of the left frontal sinus. Nearly absent right frontal sinus with mucosal thickening of the isolated right frontal sinus air cell. ETHMOIDAL SINUSES: Complete obliteration of the ethmoid sinuses with no visible young of the ethmoid air cells. This is presumably excessive granulation tissue filling of the entire ethmoidectomy site. This is unchanged. MAXILLARY SINUSES: Increase mucosal thickening and/or granulation tissue in the surrounding young of the maxillary sinuses. They communicate with the granulation tissue in the bilateral ethmoidectomy sites. SPHENOIDAL SINUSES: Surgical defects in the anterior young of the sphenoid sinuses. Densely sclerotic with mucosal thickening/granulation tissue and contraction from chronic sinusitis. Postsurgical absence of the osteomeatal units. Postsurgical absence of the middle turbinates. Normal bilateral inferior turbinates. The upper nasal septum is missing. The nasal airway above the inferior turbinates are filled with granulation tissue coming from the bilateral ethmoidectomy sites. The sclerotic remaining young of the paranasal sinuses are from chronic sinusitis. The visualized bilateral orbital contents are normal. CT/Sinus/Facial Bone IMPRESSION: 1. Pronounced chronic sinusitis with excessive regulation tissue filling the bilateral ethmoidectomy sites. They blend imperceptibly with the granulation tissue in the young of the maxillary sinuses, the right frontal sinus and contracted and sclerotic sphenoid sinus. 2. Increased granulation tissue and/or mucosal thickening in the maxillary sinuses when compared to 12/29/2015. Electronically Signed: Ashish Lemus MD at 9:23 EDT , Service support ,
== END ==
PROVIDERS: Visit Provider Otolaryngology
DX: J32.9 Chronic sinusitis, unspecified (principal)
CPT/HCPCS: 70486

== ENCOUNTER → 2018-02-20 06:42 | Outpatient (CLI) | payer BC, MEDICAID, SELFPAY ==
--- NOTE | 2018-02-20 06:50 | MRI_ITS ---
STUDY: MRI ORBITS WITH AND WITHOUT CONTRAST REASON FOR EXAM: Male, 57 years old. SINUS MASS, HEADACHES; HX 3 PRIOR SINUS SURGERIES- MOST RECENT 1OYRS AGO TECHNIQUE: Standardized fat and water weighted pulse sequences were obtained in all 3 orthogonal planes, pre-and post contrast administration. 7 ml of Gadavist contrast material was administered intravenously for the contrast portion of the examination. COMPARISON: January 01, 2016 CT sinuses FINDINGS: Normal bilateral globes. Normal bilateral optic nerve sheath complexes and optic nerves. Normal bilateral intraconal and extraconal spaces. Normal bilateral extraocular muscles. Normal optic chiasm and post-chiasmatic tracts. There is moderate/severe mucosal thickening of the paranasal sinuses most prominent at the ethmoid sinus. There is no evidence of discrete masses. There is no evidence of extra-sinuses extension. MRI/Orbit Face Neck W/WO Contrast IMPRESSION: Severe chronic paranasal sinus disease. No demonstrated masses. Electronically Signed: Stacia Mccullough MD at 8:05 EST Tel , Service support ,
== END ==
PROVIDERS: Referring Provider Otolaryngology; Visit Provider Otolaryngology
DX: J34.89 Other specified disorders of nose and nasal sinuses (principal); R51 Headache
CPT/HCPCS: 70543; A9585

== ENCOUNTER 2018-03-20 09:56 | Day surgery (SDC) | payer BC, MEDICAID, SELFPAY ==
[2018-03-20] VITALS (7 sets, daily range): BP systolic 113–126; BP diastolic 77–87; PULSE 69–82; RESP 16–18; TEMP 36.2–36.6; O2SAT 92–99; BMI 21.9
--- NOTE | 2018-03-20 | ETH_PTH ---
PATIENT: KOMAL ORLANDO LOC: [facility] U#:[id number] AGE/SX: 57/M ROOM: RE03/20/[address]: Dr. Emiliano Nava MD : [id number] BED: DIS: 03/20/2018 SPEC #: [id number] RECD: 03/20/18 14:59 STATUS: ODESSA JB #: [id number] IRIS: 03/20/18 00:[address]: Emiliano Nava DEPT: SURGICAL PATHOLOGY RECD BY: Aamir Robles ENTERED: 03/20/18 15:00 SP TYPE: ETH TISS OTHR DR: Monica Primary Care Phys Tissues: A - Ethmoid sinus, NOS B - Ethmoid sinus, NOS Procedures: Surgery Specimen Level IV HEADER OPERATION: Endoscopic intranasal ethmoid, maxillary PRE-OP DIAGNOSIS: Chronic pansinusitis, allergic rhinitis TISSUE SUBMITTED: A - Right ethmoid and maxillary sinus contents, B - Left ethmoid and maxillary sinus contents MICROSCOPIC DIAGNOSIS A. Right ethmoid and maxillary sinus contents: Fragments of respiratory mucosa with chronic inflammation. B. Left ethmoid and maxillary sinus contents: Fragments of respiratory mucosa with chronic inflammation. Fragments of foreign material, consistent with plant material. ASHLEY:teodoro 03/23/18 COMMENT Case has been reviewed in consultation with Dr. Sanchez who concurs with the above diagnosis. IDC:AM MICROSCOPIC DESCRIPTION Slides are reviewed. GROSS DESCRIPTION A - Received in fixative is one container labeled with the patient's name and designated right ethmoid and maxillary sinus contents. The specimen consists of multiple fragments of pink hemorrhagic soft tissue that in aggregate measure 5 x 3 x 0.3 cm. The entire specimen is submitted in two cassettes. B - Received in fixative is one container labeled with the patient's name and designated left ethmoid and maxillary sinus contents. The specimen consists of multiple fragments of hemorrhagic soft tissue mucosa with mucoid tissue that in aggregate measure 5 x 3 x 0.6 cm. The entire specimen is submitted in four cassettes. / ASHLEY:teodoro 03/20/18 TC:3 CPT: 83215 x2
--- NOTE | 2018-03-20 10:12 | EKG12_ITS ---
Test Reason : PRE OP Blood Pressure : / mmHG Vent. Rate : 068 BPM Atrial Rate : 068 BPM P-R Int : 130 ms QRS Dur : 090 ms QT Int : 388 ms P-R-T Axes : 028 019 048 degrees QTc Int : 412 ms Normal sinus rhythm Normal ECG When compared with ECG of 02-AUG-2017 20:06, Premature supraventricular complexes are no longer Present Confirmed by CHICHI LORENZO, BREE ([id number]), manuscript editor DORINDA SMALLWOOD ([id number]) on 03/23/2018 11:27:30 AM Referred By: Lucio Nava Confirmed By:BREE CADET MD
[2018-03-20 10:31] LABS: Hematocrit 44.9 % (40-54); Hemoglobin 15.5 g/dl (13.0-16.5); Mean Corp Hgb Conc 34.5 g/gl (32-36); Mean Corpuscular Hgb 30.5 pg (27.0-32.0); Mean Corpuscular Volume 88.4 fL (80-94); Mean Platelet Vol. 9.8 fl (6.2-12.0); Platelet Count 210 K/mm3 (150-450); RBC Distribution Width SD 41.5 fl (35.1-43.9); Red Blood Count 5.08 M/mm3 (4.6-6.2); Scan Indicated on CBC? Y/N NO; White Blood Count 6.8 K/mm3 (4.4-11.0)
[2018-03-20 10:42] LABS: Anion Gap 7 (5-15); BUN 17 mg/dL (7-18); BUN/Creat Ratio 14.8 RATIO (10-20); Calcium,Total 8.6 mg/dL (8.5-10.1); Chloride 106 mmol/L (98-107); Creatinine, Serum 1.15 mg/dL (0.70-1.30); EST Glomerular Filtration Rate 70 mL/min (>60); Est Glom Filt Rate - Afr Amer 85 mL/min (>60); Estimated Creatinine Clearance 71.14 ml/min; Glucose 89 mg/dL (74-106); Potassium 3.8 mmol/L (3.5-5.1); Sodium Level 141 mmol/L (136-145)
--- NOTE | 2018-03-20 12:21 | DCINST_ITS ---
You will use the following diet at home:: No restrictions Discharge Activity: Return to Normal Activity Call your doctor if your incision/area has: Increased Pain/ Swelling Additional Dressing/Incision Instructions:: irrigate nose with saline 6 times/day. Allergies/Adverse Reactions: Allergies aspirin Allergy (Verified 03/13/18 09:43) asthmatic reaction Medications to take at Discharge Albuterol Inhaler [Ventolin Hfa] 1 - 2 puff INHALATION Q4H PRN PRN 08/17/16 Lamotrigine [Lamictal] 200 mg PO DAILY 08/17/16 Quetiapine Fumarate [Seroquel XR] 200 mg PO QHS 08/17/16 Doxepin HCl 50 mg PO QHS PRN PRN 08/01/17 Fluticasone/Vilanterol [Breo Ellipta 200-25 Mcg INH] 1 puff INHALATION DAILY 08/01/17 Albuterol Aerosols [Ventolin Aerosols] 2.5 mg INHALATION Q2H PRN PRN #1 box 08/03/17 Doxycycline 100 mg PO BID 03/13/18 Prednisone 30 mg PO DAILY 03/13/18 Acetaminophen/Codeine #3 [Tylenol#3] 1 tab PO Q6H PRN PRN 5 Days #15 tab 03/20/18 MethylPREDNISolone DosePak [Medrol DosePak] 4 mg PO UD #1 box 03/20/18 Smz/Tmp Ds [Bactrim Ds] 1 tab PO BID #20 tab 03/20/18 The following prescriptions were given: Acetaminophen/Codeine #3 [Tylenol#3] 1 tab PO Q6H PRN PRN 5 Days #15 tab PRN Reason: Pain MethylPREDNISolone DosePak [Medrol DosePak] 4 mg PO UD #1 box Smz/Tmp Ds [Bactrim Ds] 1 tab PO BID #20 tab Primary Care Physician: Care Physician,No Primary [Primary Care Provider] - Test Results: Test results from this visit will be discussed in further detail at your follow- up appointment, if applicable. Please Follow Up With: Lucio Nava MD When: 1 week
--- NOTE | 2018-03-20 12:26 | OP.PCM_ITS ---
Problem List (1) Chronic sinusitis Status: Chronic Qualifiers: Sinusitis location: pansinusitis Qualified Code(s): J32.4 - Chronic pansinusitis Report of Operation Date of Procedure: 03/20/18 Pre-Operative Diagnosis: 1. chronic pansinusitis. 2. sinonasal polyposis Post-Operative Diagnosis: 1. chronic pansinusitis. 2. sinonasal polyposis Surgery/Procedure Performed:: 1. endoscopic total ethmoidectomy with sphenoidotomy, right and left. 2. endoscopic maxillary antrostomy, right and left. 3. endoscopic frontal sinus exploration with removal of contents. 4. extensive polyp excision. 5. CT image guidance Type of Anesthesia:: General Description of Procedure: on the day of the procedure, the patient was brought to the operating room and placed in supine position on the operating table. he was placed under general endotracheal anesthesia by the anesthesiologist. the endotracheal tube was sec ured. facial recognition stickers were placed and the navigation was set up. the bilateral nasal cavities were decongested with oxymetazoline soaked pledgets. a zero degree endoscope was used to evaluate the nasal cavity and inject numerous polyps with lidocaine/epinephrine. the navigation was checked for accuracy using numerous landmarks. the left nasal cavity was evaluated with the endoscope. the microdebrider was used to remove numerous anterior polyps. a revision maxillary antrostomy was performed using the microdebrider and a back biter. contents were evacuated. the microdebrider was used to remove ethmoid polyps and a revision total ethmoidectomy was performed. the navigation was used and care was taken as previous surgeries exposed the lamina and skull base. a stankewicz maneuver was performed and no laminar defect was noted. the sphenoid os and cavity was widened with the microdebrider and suctioned. contents were removed. the area was irrigated with saline. the acclarent balloon sinuplasty catheter was introduced in the presumed approximate location of the frontal recess as the middle turbinate had been removed previously. transillumination was seen in the frontal area, the balloon was advanced and inflated to 12 gerald. it was retracted. the microdebrider was used to then remove polypoid tissue of the frontal recess. a propel stent was deployed in the previous ethmoid cavity. hemostasis was observed. the right nasal cavity was evaluated with the endoscope. the microdebrider was used to remove numerous anterior polyps. a revision maxillary antrostomy was performed using the microdebrider and a back biter. contents were evacuated. the microdebrider was used to remove ethmoid polyps and a revision total ethmoidectomy was performed. the navigation was used and care was taken as previous surgeries exposed the lamina and skull base. a stankewicz maneuver was performed and no laminar defect was noted. the sphenoid os and cavity was widened with the microdebrider and suctioned. contents were removed. the area was irrigated with saline. the acclarent balloon sinuplasty catheter was introduced in the presumed approximate location of the frontal recess as the middle turbinate had been removed previously. transillumination was seen in the frontal area, the balloon was advanced and inflated to 12 gerald. it was retracted. the microdebrider was used to then remove polypoid tissue of the frontal recess. a propel stent was deployed in the previous ethmoid cavity. hemostasis was observed. the table was rotated 90 degrees toward the anesthesiologist and subsequently extubated uneventfully. the patient was transferred to the PACU in stable condition. - Admit VTE Documentation VTE Mechan Device Prophylaxis: SCD's
[2018-03-20] MEDS: Oxymetazoline 0.05% 1 SPRAY SPRAY.BTL 15 SPRAY (13:00)
--- OUTSIDE RECORDS SUMMARY | 2018-05-06 10:15 | XMS RPT_ITS ---
:1960 Author Organization OHIP Support Name Relationship Address Phone LILY PRADO Unavailable [address] + [place] [address] DANIEL ARROYO Unavailable [address] + [place] [address] LILY PRADO Unavailable [address] + [place] [address] DANIEL ARROYO Unavailable [address] + [place] [address] LILY PRADO Unavailable [address] + [place] [address] DANIEL ARROYO Unavailable [address] + [place] [address] LILY PRADO Unavailable [address] + [place] [address] DANIEL ARROYO Unavailable [address] + [place] [address] LILY PRADO Unavailable [address] + [place] [address] DANIEL ARROYO Unavailable [address] + [place] [address] LILY PRADO Unavailable [address] + [place] [address] DANIEL ARROYO Unavailable [address] + [place] [address] LILY PRADO Unavailable [address] + [place] [address] DANIEL ARROYO Unavailable / +/ [place] [address] LILY PRADO Unavailable [address] + [place] [address] DANIEL ARROYO Unavailable [address] + [place] [address] LILY PRADO Unavailable [address] + [place] [address] DANIEL ARROYO Unavailable [address] + [place] [address] Care Team Providers Name Role Phone BESSIE REINOSO (PT) Attending Unavailable SANFORD OSULLIVAN Referring Unavailable LINDA HOWE (PA) Attending Unavailable LINDA HOWE (PA) Referring Unavailable LINDA HOWE (PA) Attending Unavailable LINDA HOWE (PA) Referring Unavailable CARLEYLINDA LEE (PA) Attending Unavailable LINDA HOWE (PA) Referring Unavailable Jerry, [place] Attending Unavailable Wartmann, Lucio Referring Unavailable Primay Care Physicia, No Primary Care Unavailable Stoney, Armando Admitting Unavailable White, Kate Attending Unavailable Stoney, Armando Admitting Unavailable Stoney, Armando Attending Unavailable Primay Care Physicia, No Primary Care Unavailable Stoney, Armando Consulting Unavailable Stoney, Armando Admitting Unavailable White, Kate Attending Unavailable Primay Care Physicia, No Primary Care Unavailable White, Kate Consulting Unavailable Stoney, Armando Admitting Unavailable White, Kate Attending Unavailable Primay Care Physicia, No Primary Care Unavailable White, Kate Consulting Unavailable Jerry, [place] Attending Unavailable Stoney, Armando Referring Unavailable Wartmann, Lucio Attending Unavailable Wartmann, Lucio Referring Unavailable Primay Care Physicia, No Primary Care Unavailable Wartmann, Lucio Attending Unavailable Wartmann, Lucio Referring Unavailable Primay Care Physicia, No Primary Care Unavailable Wartmann, Lucio Attending Unavailable Wartmann, Lucio Referring Unavailable Primay Care Physicia, No Primary Care Unavailable PROBLEMS PROBLEMS DATE TYPE CONDITION / CODE ATTENDING STATUS SOURCE 04/04/2018 Unknown Z01.810 - Encounter Jerry, David Active [facility] for preprocedural [facility] examination / Repository Z01.810(ICD-10) 04/20/2016 Active Mild intermittent NA Active [place] [facility], Clinic Main uncomplicated / [place] J45.20(ICD-10) Repository 09/19/2017 Unknown R00.0 - Tachycardia, Jerry, [place] Active [facility] unspecified / [facility] R00.0(ICD-10) Hospital Repository 12/01/2016 Active Unknown / BESSIE REINOSO Active [facility](Unknown) (PT) Clinic Main [place] Repository PROCEDURES PROCEDURES No Procedure Records FoundRESULTS RESULTS 12 LEAD ELECTROCARDIOGRAM Observed: 03/23/2018 Status: F Source: [place] 11:28 AM [facility] Cardiovascular Services [address] [place] [address] 12 Lead EKG 03/20/18 1028 MR#: [id number] Acct: [id number] Name: KOMAL ORLANDO Rep #: [id number] : 1960 57 From: David Edwards MD Attending Dr: Emiliano Nava MD Status: DEP [facility] Ordering Dr: Lucio Nava MD Date: 03/20/18 Location: [facility] Sex: M C Admitted: Test Reason : PRE OP Blood Pressure : / mmHG Vent. Rate : 068 BPM Atrial Rate : 068 BPM P-R Int : 130 ms QRS Dur : 090 ms QT Int : 388 ms P-R-T Axes : 028 019 048 degrees QTc Int : 412 ms Normal sinus rhythm Normal ECG When compared with ECG of 02-AUG-2017 20:06, Premature supraventricular complexes are no longer Present Confirmed by JERRY LORENZO, DAVID ([id number]), development editor DORINDA SMALLWOOD ([id number]) on 03/23/2018 11:27:30 AM Referred By: Lucio Nava Confirmed By:DAVID EDWARDS MD 03/23/18 1127 Date David Edwards MD CC: No Primary Care Physician; Emiliano Nava MD Signed OPERATIVE REPORT Observed: 03/20/2018 Status: F Source: [place] 6:21 PM [facility] Medical Records Department [address] [place] [address] Operative Report 03/20/18 1221 MR#: [id number] Acct: [id number] Name: KOMAL ORLANDO Rep #: [id number] : 1960 57 From: Lucio Nava MD PCP: Care Physician, No Primary Status: DEP [facility] [place] Location: [facility] Problem List (1) Chronic sinusitis Status: Chronic Qualifiers: Sinusitis location: pansinusitis Qualified Code(s): J32.4 - Chronic pansinusitis Report of Operation Date of Procedure: 03/20/18 Pre-Operative Diagnosis: 1. chronic pansinusitis. 2. sinonasal polyposis Post-Operative Diagnosis: 1. chronic pansinusitis. 2. sinonasal polyposis Surgery/Procedure Performed:: 1. endoscopic total ethmoidectomy with sphenoidotomy, right and left. 2. endoscopic maxillary antrostomy, right and left. 3. endoscopic frontal sinus exploration with removal of contents. 4. extensive polyp excision. 5. CT image guidance Type of Anesthesia:: General Description of Procedure: on the day of the procedure, the patient was brought to the operating room and placed in supine position on the operating table. he was placed under general endotracheal anesthesia by the anesthesiologist. the endotracheal tube was secured. facial recognition stickers were placed and the navigation was set up. the bilateral nasal cavities were decongested with oxymetazoline soaked pledgets. a zero degree endoscope was used to evaluate the nasal cavity and inject numerous polyps with lidocaine/epinephrine. the navigation was checked for accuracy using numerous landmarks. the left nasal cavity was evaluated with the endoscope. the microdebrider was used to remove numerous anterior polyps. a revision maxillary antrostomy was performed using the microdebrider and a back biter. contents were evacuated. the microdebrider was used to remove ethmoid polyps and a revision total ethmoidectomy was performed. the navigation was used and care was taken as previous surgeries exposed the lamina and skull base. a stankewicz maneuver was performed and no laminar defect was noted. the sphenoid os and cavity was widened with the microdebrider and suctioned. contents were removed. the area was irrigated with saline. the acclarent balloon sinuplasty catheter was introduced in the presumed approximate location of the frontal recess as the middle turbinate had been removed previously. transillumination was seen in the frontal area, the balloon was advanced and inflated to 12 gerald. it was retracted. the microdebrider was used to then remove polypoid tissue of the frontal recess. a propel stent was deployed in the previous ethmoid cavity. hemostasis was observed. the right nasal cavity was evaluated with the endoscope. the microdebrider was used to remove numerous anterior polyps. a revision maxillary antrostomy was performed using the microdebrider and a back biter. contents were evacuated. the microdebrider was used to remove ethmoid polyps and a revision total ethmoidectomy was performed. the navigation was used and care was taken as previous surgeries exposed the lamina and skull base. a stankewicz maneuver was performed and no laminar defect was noted. the sphenoid os and cavity was widened with the microdebrider and suctioned. contents were removed. the area was irrigated with saline. the acclarent balloon sinuplasty catheter was introduced in the presumed approximate location of the frontal recess as the middle turbinate had been removed previously. transillumination was seen in the frontal area, the balloon was advanced and inflated to 12 gerald. it was retracted. the microdebrider was used to then remove polypoid tissue of the frontal recess. a propel stent was deployed in the previous ethmoid cavity. hemostasis was observed. the table was rotated 90 degrees toward the anesthesiologist and subsequently extubated uneventfully. the patient was transferred to the PACU in stable condition. - Admit VTE Documentation VTE Mechan Device Prophylaxis: SCD's 03/20/181820 <Electronically signed by Lucio Nava MD> Date Lucio Nava MD CC: No Primary Care Physician; Emiliano Nava MD Signed DISCHARGE INSTRUCTION Observed: 03/20/2018 Status: F Source: [place] 12:21 PM [facility] REPOSITORY [facility] Medical Records Department [address] [place] [address] Instructions for Home/Discharge Instructions 03/20/18 1220 MR#: [id number] Acct: [id number] Name: KOMAL ORLANDO Ebony Rep #: [id number] : 1960 57 From: Lucio Nava MD PCP: Care Physician, No Primary Status: REG [facility] You will use the following diet at home:: No restrictions Discharge Activity: Return to Normal Activity Call your doctor if your incision/area has: Increased Pain/ Swelling Additional Dressing/Incision Instructions:: irrigate nose with saline 6 times/day. Allergies/Adverse Reactions: Allergies aspirin Allergy (Verified 03/13/18 09:43) asthmatic reaction Medications to take at Discharge Albuterol Inhaler [Ventolin Hfa] 1 - 2 puff INHALATION Q4H PRN PRN 08/17/16 Lamotrigine [Lamictal] 200 mg PO DAILY 08/17/16 Quetiapine Fumarate [Seroquel XR] 200 mg PO QHS 08/17/16 Doxepin HCl 50 mg PO QHS PRN PRN 08/01/17 Fluticasone/Vilanterol [Breo Ellipta 200-25 Mcg INH] 1 puff INHALATION DAILY 08/01/17 Albuterol Aerosols [Ventolin Aerosols] 2.5 mg INHALATION Q2H PRN PRN #1 box 08/03/17 Doxycycline 100 mg PO BID 03/13/18 Prednisone 30 mg PO DAILY 03/13/18 Acetaminophen/Codeine #3 [Tylenol#3] 1 tab PO Q6H PRN PRN 5 Days #15 tab 03/20/18 MethylPREDNISolone DosePak [Medrol DosePak] 4 mg PO UD #1 box 03/20/18 Smz/Tmp Ds [Bactrim Ds] 1 tab PO BID #20 tab 03/20/18 The following prescriptions were given: Acetaminophen/Codeine #3 [Tylenol#3] 1 tab PO Q6H PRN PRN 5 Days #15 tab PRN Reason: Pain MethylPREDNISolone DosePak [Medrol DosePak] 4 mg PO UD #1 box Smz/Tmp Ds [Bactrim Ds] 1 tab PO BID #20 tab Primary Care Physician: Care Physician,No Primary [Primary Care Provider] - Test Results: Test results from this visit will be discussed in further detail at your follow-up appointment, if applicable. Please Follow Up With: Lucio Nava MD When: 1 week 03/20/18 7611 <Electronically signed by Lucio Nava MD> Date Lucio Nava MD CC: No Primary Care Physician CBC-COMPLETE BLOOD CNT Collected: 03/20/2018 Status: F Source: [place] NO DIFF 10:24 AM [facility] REPOSITORY TYPE CODE TESTS RESULT OUT OF RANGE REFERENCE UNITS LAB L100.1000 4.4-11.0 K/mm3 Normal WBC 6.8 LAB L100.1200 4.6-6.2 M/mm3 Normal RBC 5.08 LAB L100.1300 13.0-16.5 g/dl Normal HGB 15.5 LAB L100.1400 40-54 % Normal HCT 44.9 LAB L100.1500 80-94 fL Normal MCV 88.4 LAB L100.1600 27.0-32.0 pg Normal MCH 30.5 LAB L100.1700 32-36 g/gl Normal MCHC 34.5 LAB L100.1810 11.6-14.6 % Normal RDW CV 13.0 LAB L100.1820 35.1-43.9 fl Normal RDW SD 41.5 LAB L100.1900 150-450 K/mm3 Normal PLT 210 LAB L100.2000 6.2-12.0 fl Normal MPV 9.8 Performed By: #### L100.0500 #### [facility] [address] [place], [place], [address] BASIC METABOLIC Collected: 03/20/2018 Status: F Source: [place] PROFILE (BMP) 10:24 AM [facility] REPOSITORY TYPE CODE TESTS RESULT OUT OF RANGE REFERENCE UNITS LAB L501.0100 74-106 mg/dL Normal GLU 89 Result Comment: Please note revised GLUCOSE reference range effective 2017. LAB L501.1000 7-18 mg/dL Normal BUN 17 LAB L501.1100 0.70-1.30 mg/dL Normal CREAT,SERUM 1.15 Result Comment: The validity of the calculated GFR AND GFRAA in patients over 70 years has not been determined. Clinical correlation is essential. LAB L501.1110 >60 mL/min Normal EST GFR 70 Result Comment: Non- GFR Calc LAB L501.1115 >60 mL/min Normal EST GFR - AA 85 Result Comment: GFR Calc LAB L501.1255 ml/min Normal Estimated CRCL 71.14 LAB L501.1300 10-20 RATIO Normal BUN/CRE 14.8 LAB L501.2200 8.5-10 mg/dL Normal .1 CA 8.6 LAB L501.5300 136-14 mmol/L Normal 5 NA 141 LAB L501.5600 3.5-5. mmol/L Normal 1 K 3.8 LAB L501.5900 98-107 mmol/L Normal CL 106 LAB L501.6100 21.0-3 mmol/L Normal 2.0 CO2 28.0 LAB L501.6200 5-15 Normal GAP 7 Performed By: #### L500.2500 #### [facility] [address] [place], [address] ETHMOID TISSUE Observed: 03/20/2018 Status: F Source: [place] 12:00 AM [facility] REPOSITORY Patient: KOMAL ORLANDO : 1960 (57/M) Acct Num: [id number] Phys: Elijah LORENZO,[place] Unit Num: [id number] Loc: [facility] Specimen: [id number] Received: 03/20/18 1459 Spec Type: ETH TISS TISSUES 1 TISSUES: A. Ethmoid sinus, NOS B. Ethmoid sinus, NOS COMMENT Case has been reviewed in consultation with Dr. Sanchez who concurs with the above diagnosis. IDC:AM GROSS DESCRIPTION A - Received in fixative is one container labeled with the patient's name and designated right ethmoid and maxillary sinus contents. The specimen consists of multiple fragments of pink hemorrhagic soft tissue that in aggregate measure 5 x 3 x 0.3 cm. The entire specimen is submitted in two cassettes. B - Received in fixative is one container labeled with the patient's name and designated left ethmoid and maxillary sinus contents. The specimen consists of multiple fragments of hemorrhagic soft tissue mucosa with mucoid tissue that in aggregate measure 5 x 3 x 0.6 cm. The entire specimen is submitted in four cassettes. / ASHLEY:teodoro 03/20/18 TC:3 CPT: 49298 x2 HEADER OPERATION: Endoscopic intranasal ethmoid, maxillary PRE-OP DIAGNOSIS: Chronic pansinusitis, allergic rhinitis TISSUE SUBMITTED: A - Right ethmoid and maxillary sinus contents, B - Left ethmoid and maxillary sinus contents MICROSCOPIC DESCRIPTION Slides are reviewed. MICROSCOPIC DIAGNOSIS A. Right ethmoid and maxillary sinus contents: Fragments of respiratory mucosa with chronic inflammation. B. Left ethmoid and maxillary sinus contents: Fragments of respiratory mucosa with chronic inflammation. Fragments of foreign material, consistent with plant material. SJ:teodoro 03/23/18 Signed Sean Holguin 03/23/18 <signature on file> Performed By: #### PETH #### [facility] [address] [facility] [place], [address] ORBIT FACE NECK W/WO Observed: 02/20/2018 Status: F Source: [place] CONTRAST 6:50 AM [facility] REPOSITORY [facility] Imaging Services [address] [place] [address] Orbit Face Neck W/WO Contrast MR#: [id number] Acct: [id number] Name: KOMAL ORLANDO Rep #: [id number] : 1960 M 57 From: Stacia Mccullough PCP: Care Physician, No Primary Status: REG CLI Study: Orbit Face Neck W/WO Contrast Date of Exam: 02/20/18 Exam# [id number] Ordering Dr: Lucio Nava MD STUDY: MRI ORBITS WITH AND WITHOUT CONTRAST REASON FOR EXAM: Male, 57 years old. SINUS MASS, HEADACHES; HX 3 PRIOR SINUS SURGERIES- MOST RECENT 1OYRS AGO TECHNIQUE: Standardized fat and water weighted pulse sequences were obtained in all 3 orthogonal planes, pre-and post contrast administration. 7 ml of Gadavist contrast material was administered intravenously for the contrast portion of the examination. COMPARISON: January 01, 2016 CT sinuses FINDINGS: Normal bilateral globes. Normal bilateral optic nerve sheath complexes and optic nerves. Normal bilateral intraconal and extraconal spaces. Normal bilateral extraocular muscles. Normal optic chiasm and post-chiasmatic tracts. There is moderate/severe mucosal thickening of the paranasal sinuses most prominent at the ethmoid sinus. There is no evidence of discrete masses. There is no evidence of extra-sinuses extension. MRI/Orbit Face Neck W/WO Contrast IMPRESSION: Severe chronic paranasal sinus disease. No demonstrated masses. Electronically Signed: Stacia Mccullough MD at 8:05 EST Tel , Service support , CC: No Primary Care Physician; Emiliano Nava MD [employer] Operations Intelligence Officer: Signed CNOV Observed: 02/19/2018 Status: COMPLETED Source: [place] 9:00 AM [facility] REPOSITORY Office Visit (PULMWS) KOMAL ORLANDO ([id number]) 1960 M [facility] Date Time Provider Department 02/19/18 9:00 AM LINDA HOWE During your visit today, we recorded the following information about you: Pulse Respiration Blood pressure Weight 96/minute 16/minute 96/56 70.3 kg Linda Howe PA-C 02/19/2018 9:02 AM Signed [facility] [place], 02/19/18: INTERVAL HISTORY: The patient is here for follow up of asthma; the last Pulmonary Clinic visit was 10/05/17. The patient admits to compliance with prescribed maintenance Rx: Breo 1 inhalation once daily . There have been no ED visit(s) for the management of asthma exacerbation. No hospitalization(s) for management of asthma exacerbation. Has used no prednisone for the management of exacerbation. 2-3 times monthly rescue bronchodilator use, with good relief. No nocturnal awakenings per month with asthma symptoms. Rarely coughs. No sputum, hemoptysis or pleuritic chest pain. No wheezing. Post nasal drip. Having sinus surgery in March per ENT (removing polyps). No dyspnea. No disruption in taste or voice associated with use of inhaled corticosteroid. No tremor, palpitations, or muscle cramping associated with bronchodilator inhalation. PMH: Updated with patient today. FAMH: Updated with patient today. SOCH: Updated with patient today. ROS: General: Generally feels good. Appetite good. Weight stable. Eyes, Ears, nose, throat: Post nasal drip, rhinorrhea. No purulent nasal discharge, epistaxis. No hoarseness. Vision stable. Cardiac: No angina, edema, orthopnea. GI: No heartburn, dysphagia, diarrhea. 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 Musculoskeletal: No pain. Neuro: No headache, focal weakness, tremor. Skin: No rash. Otherwise negative. Immunization History Administered Date(s) Administered Influenza Seasonal Inj Age 3+ 02/19/2016 Influenza Seasonal Inj Quadrivalent Age 3+ 04/06/2017 Pneumovax 06/24/2016 Tdap (Age 7+) 04/20/2016 Allergies were verified and updated, and medications were reconciled with the patient at this visit. PHYSICAL EXAMINATION: BP 96/56 Pulse 96 Resp 16 Wt 155 lb (70.3kg) SpO2 98% Gen: No acute distress. Cooperative with examination. ENT: Nares clear. Oral hygeine good. Pharynx clear. No sign of oral thrush. Resp: No stridor, accessory respiratory muscle use. No crackles, wheezes. CV: Regular rythm. Heart tones normal. Radial pulses normal. Abd: Non distended. MSK: No kyphoscoliosis. Ext: Warm and well perfused. No cyanosis. Skin: No rash, eczema, urticaria. Neuro: Mental status normal. No tremor. DATA REVIEW: No new data. IMPRESSION and RECOMMENDATIONS: Asthma, intermittent, well controlled. 1. I reviewed the pathophysiology of asthma, NIH guidelines for evaluation and management, and mechanisms of action and side effects of medical therapy (ICS, bronchodilators) with the patient. 2. Changes in maintenance Rx: - None. 3. Recommend annual influenza vaccine. Will check to see if received at ENT office. 4. Continue Albuterol HFA inhaler, 2 inhalations 10?15 minutes prior to activities associated with shortness of breath, and as needed for rescue relief of shortness of breath or wheezing, up to 4 times daily. 5. Continue immunotherapy to diminish allergic response. 6. Re-assess in 6 months, sooner if needed. I addressed the questions of the patient, and he expressed understanding and acceptance of my answers. Linda Howe PA-C [facility] [place] [facility] [address] [place] [id number] Linda Howe PA-C 02/19/2018 8:56 AM Signed Asthma, intermittent, well controlled. 1. I reviewed the pathophysiology of asthma, NIH guidelines for evaluation and management, and mechanisms of action and side effects of medical therapy (ICS, bronchodilators) with the patient. 2. Changes in maintenance Rx: - None. 3. Recommend annual influenza vaccine. Will check to see if received at ENT office. 4. Continue Albuterol HFA inhaler, 2 inhalations 10?15 minutes prior to activities associated with shortness of breath, and as needed for rescue relief of shortness of breath or wheezing, up to 4 times daily. 5. Continue immunotherapy to diminish allergic response. 6. Re-assess in 6 months, sooner if needed. Referring Provider: LINDA HOWE [[id number]] Allergies As of Date: 02/19/2018 Noted Allergy Reaction ASPIRIN 12/31/2015 12 - Shortness of Breath Date Reviewed: 02/19/2018 Reviewed by: Linda Howe - Fully Assessed Reason for Visit: Established Patient [175] Cmt: 4 month follow up asthma Primary Visit Diagnosis:Intermittent asthma with allergic rhinitis [J45.20] Prescriptions as of 02/19/2018 Sig: BREO ELLIPTA 200 MCG-25 MCG/D* INAHLE ONE PUFF DAILY DICLOFENAC SODIUM 75 MG TABLE* Take 1 tablet by mouth twice * MULTIPLE VITAMIN ORAL Take 1 capsule by mouth once * LORAZEPAM 0.5 MG TABLET Take 1 tablet by mouth twice * ALBUTEROL SULFATE HFA 90 MCG/* Inhale 2 Puffs as instructed * LAMOTRIGINE 200 MG TABLET Take 200 mg by mouth once gama* QUETIAPINE ER 400 MG TABLET,E* Take 400 mg by mouth daily at* Problem List As Of Date 02/19/2018 Noted Resolved Mild intermittent asthma [J45.20] INVALID FOR* Acute deep vein thrombosis (DVT) of left lower *INVALID FOR* More... Bipolar depression (HCC) [F31.30] INVALID FOR* More... Unilateral inguinal hernia [K40.90] INVALID FOR* Pneumonia [J18.9] Other instructions from your clinician: Asthma, intermittent, well controlled. 1. I reviewed the pathophysiology of asthma, NIH guidelines for evaluation and management, and mechanisms of action and side effects of medical therapy (ICS, bronchodilators) with the patient. 2. Changes in maintenance Rx: - None. 3. Recommend annual influenza vaccine. Will check to see if received at ENT office. 4. Continue Albuterol HFA inhaler, 2 inhalations 10?15 minutes prior to activities associated with shortness of breath, and as needed for rescue relief of shortness of breath or wheezing, up to 4 times daily. 5. Continue immunotherapy to diminish allergic response. 6. Re-assess in 6 months, sooner if needed. Disposition: Return in about 6 months (around 08/19/2018). Follow-up and Disposition History Recorded Encounter Status:Closed by LINDA HOWE on 02/19/18 PROGRESS Observed: 02/19/2018 Status: COMPLETED Source: [place] 8:34 AM [facility] REPOSITORY HNO ID: [id number] Author: Linda Howe Service: (none) Author Type: Physician Yard Person Type: Progress Notes Filed: 02/19/2018 9:02 AM Note Text: [facility] [place], 02/19/18: INTERVAL HISTORY: The patient is here for follow up of asthma; the last Pulmonary Clinic visit was 10/05/17. The patient admits to compliance with prescribed maintenance Rx: Breo 1 inhalation once daily . There have been no ED visit(s) for the management of asthma exacerbation. No hospitalization(s) for management of asthma exacerbation. Has used no prednisone for the management of exacerbation. 2-3 times monthly rescue bronchodilator use, with good relief. No nocturnal awakenings per month with asthma symptoms. Rarely coughs. No sputum, hemoptysis or pleuritic chest pain. No wheezing. Post nasal drip. Having sinus surgery in March per ENT (removing polyps). No dyspnea. No disruption in taste or voice associated with use of inhaled corticosteroid. No tremor, palpitations, or muscle cramping associated with bronchodilator inhalation. PMH: Updated with patient today. FAMH: Updated with patient today. SOCH: Updated with patient today. ROS: General: Generally feels good. Appetite good. Weight stable. Eyes, Ears, nose, throat: Post nasal drip, rhinorrhea. No purulent nasal discharge, epistaxis. No hoarseness. Vision stable. Cardiac: No angina, edema, orthopnea. GI: No heartburn, dysphagia, diarrhea. 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 Musculoskeletal: No pain. Neuro: No headache, focal weakness, tremor. Skin: No rash. Otherwise negative. Immunization History Administered Date(s) Administered Influenza Seasonal Inj Age 3+ 02/19/2016 Influenza Seasonal Inj Quadrivalent Age 3+ 04/06/2017 Pneumovax 06/24/2016 Tdap (Age 7+) 04/20/2016 Allergies were verified and updated, and medications were reconciled with the patient at this visit. PHYSICAL EXAMINATION: BP 96/56 Pulse 96 Resp 16 Wt 155 lb (70.3kg) SpO2 98% Gen: No acute distress. Cooperative with examination. ENT: Nares clear. Oral hygeine good. Pharynx clear. No sign of oral thrush. Resp: No stridor, accessory respiratory muscle use. No crackles, wheezes. CV: Regular rythm. Heart tones normal. Radial pulses normal. Abd: Non distended. MSK: No kyphoscoliosis. Ext: Warm and well perfused. No cyanosis. Skin: No rash, eczema, urticaria. Neuro: Mental status normal. No tremor. DATA REVIEW: No new data. IMPRESSION and RECOMMENDATIONS: Asthma, intermittent, well controlled. 1. I reviewed the pathophysiology of asthma, NIH guidelines for evaluation and management, and mechanisms of action and side effects of medical therapy (ICS, bronchodilators) with the patient. 2. Changes in maintenance Rx: - None. 3. Recommend annual influenza vaccine. Will check to see if received at ENT office. 4. Continue Albuterol HFA inhaler, 2 inhalations 10?15 minutes prior to activities associated with shortness of breath, and as needed for rescue relief of shortness of breath or wheezing, up to 4 times daily. 5. Continue immunotherapy to diminish allergic response. 6. Re-assess in 6 months, sooner if needed. I addressed the questions of the patient, and he expressed understanding and acceptance of my answers. Linda Howe PA-C [facility] [place] [facility] [address] [place] [address] SINUS/FACIAL BONE Observed: 12/23/2017 Status: F Source: [place] 7:09 AM [facility] REPOSITORY [facility] Imaging Services [address] [place] [address] Sinus/Facial Bone MR#: [id number] Acct: [id number] Name: KOMAL ORLANDO Rep #: [id number] : 1960 M 57 From: Ashish Lemus MD PCP: Care Physician, No Primary Status: REG CLI Study: Sinus/Facial Bone Date of Exam: 12/23/17 Exam# [id number] Ordering Dr: Lucio Nava MD STUDY: CT MAXILLOFACIAL SINUSES REASON FOR EXAM: Male, 57 years old. Chronic sinusitis since 1999. Multiple sinus infections. Sinus surgery x3. RADIATION DOSAGE (If Supplied By Facility): CTDIvol = ( 33.06 ) mGy, DLP = ( 858.64 ) mGycm TECHNIQUE: The patient was scanned in a multi detector CT scanner. High resolution axial imaging was performed without the administration of intravenous contrast material. Sagittal and coronal images were reconstructed. Individualized dose optimization techniques were used for this CT. COMPARISON: 01/01/2016. FINDINGS: FRONTAL SINUSES: Complete obliteration and opacification of the left frontal sinus. Nearly absent right frontal sinus with mucosal thickening of the isolated right frontal sinus air cell. ETHMOIDAL SINUSES: Complete obliteration of the ethmoid sinuses with no visible young of the ethmoid air cells. This is presumably excessive granulation tissue filling of the entire ethmoidectomy site. This is unchanged. MAXILLARY SINUSES: Increase mucosal thickening and/or granulation tissue in the surrounding young of the maxillary sinuses. They communicate with the granulation tissue in the bilateral ethmoidectomy sites. SPHENOIDAL SINUSES: Surgical defects in the anterior young of the sphenoid sinuses. Densely sclerotic with mucosal thickening/granulation tissue and contraction from chronic sinusitis. Postsurgical absence of the osteomeatal units. Postsurgical absence of the middle turbinates. Normal bilateral inferior turbinates. The upper nasal septum is missing. The nasal airway above the inferior turbinates are filled with granulation tissue coming from the bilateral ethmoidectomy sites. The sclerotic remaining young of the paranasal sinuses are from chronic sinusitis. The visualized bilateral orbital contents are normal. CT/Sinus/Facial Bone IMPRESSION: 1. Pronounced chronic sinusitis with excessive regulation tissue filling the bilateral ethmoidectomy sites. They blend imperceptibly with the granulation tissue in the young of the maxillary sinuses, the right frontal sinus and contracted and sclerotic sphenoid sinus. 2. Increased granulation tissue and/or mucosal thickening in the maxillary sinuses when compared to 12/29/2015. Electronically Signed: Ashish Lemus MD at 9:23 EDT , Service support , CC: No Primary Care Physician; Emiliano Nava MD [employer] Operations Intelligence Officer: Signed CNOV Observed: 10/05/2017 Status: COMPLETED Source: [place] 3:00 PM [facility] REPOSITORY Office Visit (PULMWS) KOMAL ORLANDO ([id number]) 1960 [place] [facility] Date Time Provider Department 10/05/17 3:00 PM LINDA HOWE PULMWS During your visit today, we recorded the following information about you: Pulse Respiration Blood pressure Weight 76/minute 20/minute 108/60 69.2 kg Height 1.727 m Linda Howe PA-C 10/05/2017 3:05 PM Signed [facility] [place], 10/05/17: INTERVAL HISTORY: The patient is here for follow up of asthma and pnuemonia; the last Pulmonary Clinic visit was 08/11/17. The patient admits to compliance with prescribed maintenance Rx. There have been no ED visit(s) for the management of asthma exacerbation. No hospitalization(s) for management of asthma exacerbation. Has used no prednisone for the management of exacerbation. Today, patient states he feels back to normal. Rarely using rescue bronchodilator use. No nocturnal awakenings per month with asthma symptoms. Minimal cough. No sputum. No wheezing. No dyspnea Has not return to running secondary to the heat and humidity. No disruption in taste or voice associated with use of inhaled corticosteroid. No tremor, palpitations, or muscle cramping associated with bronchodilator inhalation. PMH: Updated with patient today. FAMH: Updated with patient today. SOCH: Updated with patient today. ROS: General: Generally feels good. Appetite good. Weight stable. Eyes, Ears, nose, throat: No post nasal drip, rhinorrhea, purulent nasal discharge, epistaxis. No hoarseness. Vision stable. Cardiac: No angina, edema, orthopnea. GI: No heartburn, dysphagia, diarrhea. 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 Musculoskeletal: No pain. Neuro: No headache, focal weakness, tremor. Skin: No rash. Otherwise negative. Immunization History Administered Date(s) Administered Influenza Seasonal Inj Age 3+ 02/19/2016 Influenza Seasonal Inj Quadrivalent Age 3+ 04/06/2017 Pneumovax 06/24/2016 Tdap (Age 7+) 04/20/2016 Allergies were verified and updated, and medications were reconciled with the patient at this visit. PHYSICAL EXAMINATION: Ht 5' 8 (1.73m) Wt 152 lb 9.6 oz (69.2kg) BMI 23.21 kg/(m2). Gen: No acute distress. Cooperative with examination. ENT: Nares clear. Oral hygeine good. Pharynx clear. No sign of oral thrush. Resp: No stridor, accessory respiratory muscle use. No crackles, wheezes. CV: Regular rythm. Heart tones normal. Radial pulses normal. Abd: Non distended. MSK: No kyphoscoliosis. Ext: Warm and well perfused. No cyanosis. Skin: No rash, eczema, urticaria. Neuro: Mental status normal. No tremor. DATA REVIEW: Exhaled nitric oxide (Sukumar), 18: 11 (normal < 25). IMPRESSION and RECOMMENDATIONS: 1. Pneumonia, unknown organism. Symptomatically doing very well. CXR not indicated at this time. ? 2. Mild intermittent asthma with normal nitric oxide today. -Continue?Breo 1 inhalation once daily every day. Rinse mouth after each use to help prevent oral thrush. -Continue immunotherapy to diminish allergic response. -Avoid, as possible, trigger exposures. -Albuterol HFA metered dose inhaler, 2 inhalations as needed for shortness of breath or wheezing, up to 4 times daily. -Re-assess symptoms at next office visit in 4 months (around the time he typically states his asthma flares). ? I addressed the questions of the patient, and he expressed understanding and acceptance of my answers. Linda Howe PA-C [facility] [place] [address] [phone] Clee Brendon MOREIRA 10/05/2017 2:51 PM Signed Intake information documented in the prior visit with Caren Teran, PHARMACY TEACHER today. Linda Howe PA-C 10/05/2017 3:03 PM Addendum 1. Pneumonia, unknown organism. Symptomatically doing very well. CXR not indicated at this time. ? 2. Mild intermittent asthma. -Continue?Breo 1 inhalation once daily every day. Rinse mouth after each use to help prevent oral thrush. -Continue immunotherapy to diminish allergic response. -Avoid, as possible, trigger exposures. -Albuterol HFA metered dose inhaler, 2 inhalations as needed for shortness of breath or wheezing, up to 4 times daily. -Re-assess symptoms next office visit in 4 months. Referring Provider: LINDA HOWE [[id number]] Allergies As of Date: 10/05/2017 Noted Allergy Reaction ASPIRIN 12/31/2015 12 - Shortness of Breath Date Reviewed: 10/05/2017 Reviewed by: Linda Howe - Fully Assessed Reason for Visit: Established Patient [175] Cmt: asthma Primary Visit Diagnosis:Mild intermittent asthma without complication [J45.20] Prescriptions as of 10/05/2017 Sig: DICLOFENAC SODIUM 75 MG TABLE* Take 1 tablet by mouth twice * FLUTICASONE 200 MCG-VILANTERO* Inhale 1 Inhalation as instru* MULTIPLE VITAMIN ORAL Take 1 capsule by mouth once * LORAZEPAM 0.5 MG TABLET Take 1 tablet by mouth twice * ALBUTEROL SULFATE HFA 90 MCG/* Inhale 2 Puffs as instructed * LAMOTRIGINE 200 MG TABLET Take 200 mg by mouth once gama* QUETIAPINE ER 400 MG TABLET,E* Take 400 mg by mouth daily at* Problem List As Of Date 10/05/2017 Noted Resolved Mild intermittent asthma [J45.20] INVALID FOR* Acute deep vein thrombosis (DVT) of left lower *INVALID FOR* More... Bipolar depression (HCC) [F31.30] INVALID FOR* More... Unilateral inguinal hernia [K40.90] INVALID FOR* Pneumonia [J18.9] Other instructions from your clinician: 1. Pneumonia, unknown organism. Symptomatically doing very well. CXR not indicated at this time. ? 2. Mild intermittent asthma. -Continue?Breo 1 inhalation once daily every day. Rinse mouth after each use to help prevent oral thrush. -Continue immunotherapy to diminish allergic response. -Avoid, as possible, trigger exposures. -Albuterol HFA metered dose inhaler, 2 inhalations as needed for shortness of breath or wheezing, up to 4 times daily. -Re-assess symptoms next office visit in 4 months. Visit Notes: >> Cele Menjivar HARISH Rebeca Oct 05, 2017 2:49 PM Status: Signed Intake information documented in the prior visit with Caren Teran CRT today. Medications Discontinued During This Encounter predniSONE (DELTASONE) 10 mg tablet 08/11/2017 10/05/2017 Class: Med Update Si daily for 3 days, 3 daily for 3 days, 2 daily for 3 days, 1 daily for 3 days. Disc: Course of therapy completed Disposition: Return in about 4 months (around 02/04/2018). Follow-up and Disposition History Recorded Encounter Status:Closed by LINDA HOWE on 10/05/17 PROGRESS Observed: 10/05/2017 Status: COMPLETED Source: [place] 2:48 PM [facility] REPOSITORY HNO ID: [id number] Author: Linda Howe Service: (none) Author Type: Physician Yard Person Type: Progress Notes Filed: 10/05/2017 3:05 PM Note Text: [facility] [place], 10/05/17: INTERVAL HISTORY: The patient is here for follow up of asthma and pnuemonia; the last Pulmonary Clinic visit was 08/11/17. The patient admits to compliance with prescribed maintenance Rx. There have been no ED visit(s) for the management of asthma exacerbation. No hospitalization(s) for management of asthma exacerbation. Has used no prednisone for the management of exacerbation. Today, patient states he feels back to normal. Rarely using rescue bronchodilator use. No nocturnal awakenings per month with asthma symptoms. Minimal cough. No sputum. No wheezing. No dyspnea Has not return to running secondary to the heat and humidity. No disruption in taste or voice associated with use of inhaled corticosteroid. No tremor, palpitations, or muscle cramping associated with bronchodilator inhalation. PMH: Updated with patient today. FAMH: Updated with patient today. SOCH: Updated with patient today. ROS: General: Generally feels good. Appetite good. Weight stable. Eyes, Ears, nose, throat: No post nasal drip, rhinorrhea, purulent nasal discharge, epistaxis. No hoarseness. Vision stable. Cardiac: No angina, edema, orthopnea. GI: No heartburn, dysphagia, diarrhea. 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 Musculoskeletal: No pain. Neuro: No headache, focal weakness, tremor. Skin: No rash. Otherwise negative. Immunization History Administered Date(s) Administered Influenza Seasonal Inj Age 3+ 02/19/2016 Influenza Seasonal Inj Quadrivalent Age 3+ 04/06/2017 Pneumovax 06/24/2016 Tdap (Age 7+) 04/20/2016 Allergies were verified and updated, and medications were reconciled with the patient at this visit. PHYSICAL EXAMINATION: Ht 5' 8 (1.73m) Wt 152 lb 9.6 oz (69.2kg) BMI 23.21 kg/(m2). Gen: No acute distress. Cooperative with examination. ENT: Nares clear. Oral hygeine good. Pharynx clear. No sign of oral thrush. Resp: No stridor, accessory respiratory muscle use. No crackles, wheezes. CV: Regular rythm. Heart tones normal. Radial pulses normal. Abd: Non distended. MSK: No kyphoscoliosis. Ext: Warm and well perfused. No cyanosis. Skin: No rash, eczema, urticaria. Neuro: Mental status normal. No tremor. DATA REVIEW: Exhaled nitric oxide (Sukumar), 10/05/17: 11 (normal < 25). IMPRESSION and RECOMMENDATIONS: 1. Pneumonia, unknown organism. Symptomatically doing very well. CXR not indicated at this time. ? 2. Mild intermittent asthma with normal nitric oxide today. -Continue?Breo 1 inhalation once daily every day. Rinse mouth after each use to help prevent oral thrush. -Continue immunotherapy to diminish allergic response. -Avoid, as possible, trigger exposures. -Albuterol HFA metered dose inhaler, 2 inhalations as needed for shortness of breath or wheezing, up to 4 times daily. -Re-assess symptoms at next office visit in 4 months (around the time he typically states his asthma flares). ? I addressed the questions of the patient, and he expressed understanding and acceptance of my answers. Linda Howe PA-C [facility] [place] [facility] [address] [place] [phone] 12 LEAD ELECTROCARDIOGRAM Observed: 08/11/2017 Status: F Source: [place] 3:54 PM [facility] REPOSITORY [facility] Cardiovascular Services [address] [place] [address] 12 Lead EKG 08/02/172005 MR#: [id number] Acct: [id number] Name: KOMAL ORLANDO Rep #: [id number] : 1960 57 From: David Edwards MD Attending Dr: Kate Jensen Status: DIS IN Ordering Dr: Armando Saunders MD Date: 08/02/17 [place] [facility] [place] M C Admitted: 08/01/17 Test Reason : MED Blood Pressure : / mmHG Vent. Rate : 077 BPM Atrial Rate : 077 BPM P-R Int : 136 ms QRS Dur : 092 ms QT Int : 380 ms P-R-T Axes : 070 027 056 degrees QTc Int : 430 ms Sinus rhythm with Premature supraventricular complexes Otherwise normal ECG When compared with ECG of 01-AUG-2017 21:25, MANUAL COMPARISON REQUIRED, DATA IS UNCONFIRMED Confirmed by JERRY LORENZO, DAVID ([id number]), development editor DORINDA SMALLWOOD ([id number]) on 08/11/2017 3:53:59 PM Referred By: STONEY Confirmed By:DAVID EDWARDS MD 08/11/17 1554 Date David Edwards MD CC: No Primary Care Physician; Kate Jensen; Armando Saunders MD Signed PROGRESS Observed: 08/11/2017 Status: COMPLETED Source: [place] 8:38 AM [facility] REPOSITORY HNO ID: [id number] Author: Linda Howe Service: (none) Author Type: Physician Yard Person Type: Progress Notes Filed: 08/11/2017 9:05 AM Note Text: [facility] [place], 08/11/17: INTERVAL HISTORY: The patient is here for follow up of asthma. Since the last Pulmonary Clinic visit, patient presented to [facility] 08/01/17 with history of 1 week progressively worsening dyspnea, mildly productive cough with wheezing in addition to intermittent fevers and chills. Initial ED presentation with hypoxia, increased RR, accessory muscle usage, respiratory distress evident. CXR in the ED with bilateral lower lobe, right greater than left infiltrates concerning for pneumonia. Patient treated with Azithromycin and steroid taper. Discharged home with nebulizer. The patient has been compliant with therapy recommended at the last visit. Daily cough, that is improving. Clear sputum. No hemoptysis. No pleuritic chest pain. No wheezing. No fevers or chills. Mild exertional dyspnea with increased activity. Reports tiredness and fatigue. States it is getting better. No nocturnal awakenings. Occasional rescue bronchodilator use and nebulizer treatments less often. No disruption in taste or voice associated with use of inhaled corticosteroid. No tremor, palpitations, or muscle cramping associated with bronchodilator inhalation. Weekly immunotherapy injections via [facility]. PMH: Reviewed with patient today. No changes. FAMH: Reviewed with patient today. No changes. SOCH: No changes. ROS: General: Generally feels tired. Appetite good. Weight stable. Eyes, Ears, nose, throat: Post nasal drip, rhinorrhea. No purulent nasal discharge, epistaxis. No hoarseness. Vision stable. Cardiac: No angina, edema, orthopnea. GI: No heartburn, dysphagia, diarrhea. 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 Musculoskeletal: No pain. Neuro: No headache, focal weakness, tremor. Skin: No rash. Otherwise negative. Immunization History Administered Date(s) Administered Influenza Seasonal Inj Age 3+ 02/19/2016 Influenza Seasonal Inj Quadrivalent Age 3+ 04/06/2017 Pneumovax 06/24/2016 Tdap (Age 7+) 04/20/2016 Allergies were verified and updated, and medications were reconciled with the patient at this visit. PHYSICAL EXAMINATION: BP 108/60 Pulse 74 Resp 16 Wt 147 lb (66.7kg) SpO2 98% Gen: No acute distress. Cooperative with examination. ENT: Sclerae clear. EOMI. Nares clear. Oral hygeine and dentition good. Pharynx clear. Resp: No stridor, accessory respiratory muscle use, supra- sternal or intercostal retractions. No crackles, wheezes, rubs. CV: Regular rythm. Heart tones normal. Radial pulses normal. Abd: Non distended. MSK: No kyphoscoliosis, joint deformities. Ext: Warm and well perfused. No clubbing, cyanosis, edema. Skin: Color normal. Texture normal. No rash, eczema, urticaria. Neuro: Mental status normal. Affect normal. Muscle tone normal. No tremor. DATA REVIEW: CXR [facility] with bilateral lower lobe, right greater than left infiltrates concerning for pneumonia. IMPRESSION and RECOMMENDATIONS: 1. Pneumonia, unknown organism. Symptomatically doing very well. Will obtain CXR in 4 weeks to check for resolution. -Complete Prednisone course as directed. 2. Mild intermittent asthma. -Continue Breo 1 inhalation once daily every day. -Continue immunotherapy to diminish allergic response. -Avoid, as possible, trigger exposures. -Albuterol HFA metered dose inhaler, 2 inhalations as needed for shortness of breath or wheezing, up to 4 times daily. -Re-assess symptoms and exhaled NO at next office visit on October 05, 2017. I addressed the questions of the patient, and he expressed understanding and acceptance of my answers. Linda Howe PA-C [facility] [place] [facility] [address] [place] [address] CNOV Observed: 08/11/2017 Status: COMPLETED Source: [place] 8:30 AM [facility] REPOSITORY Office Visit (PULMWS) KOMAL ORLANDO ([id number]) 1960 [place] [facility] Date Time Provider Department 08/11/17 8:30 AM LINDA HOWE PULMWS During your visit today, we recorded the following information about you: Pulse Respiration Blood pressure Weight 74/minute 16/minute 108/60 66.7 kg Linda Howe 08/11/2017 9:05 AM Signed [facility] [place], 08/11/17: INTERVAL HISTORY: The patient is here for follow up of asthma. Since the last Pulmonary Clinic visit, patient presented to [facility] 08/01/17 with history of 1 week progressively worsening dyspnea, mildly productive cough with wheezing in addition to intermittent fevers and chills. Initial ED presentation with hypoxia, increased RR, accessory muscle usage, respiratory distress evident. CXR in the ED with bilateral lower lobe, right greater than left infiltrates concerning for pneumonia. Patient treated with Azithromycin and steroid taper. Discharged home with nebulizer. The patient has been compliant with therapy recommended at the last visit. Daily cough, that is improving. Clear sputum. No hemoptysis. No pleuritic chest pain. No wheezing. No fevers or chills. Mild exertional dyspnea with increased activity. Reports tiredness and fatigue. States it is getting better. No nocturnal awakenings. Occasional rescue bronchodilator use and nebulizer treatments less often. No disruption in taste or voice associated with use of inhaled corticosteroid. No tremor, palpitations, or muscle cramping associated with bronchodilator inhalation. Weekly immunotherapy injections via [facility]. PMH: Reviewed with patient today. No changes. FAMH: Reviewed with patient today. No changes. SOCH: No changes. ROS: General: Generally feels tired. Appetite good. Weight stable. Eyes, Ears, nose, throat: Post nasal drip, rhinorrhea. No purulent nasal discharge, epistaxis. No hoarseness. Vision stable. Cardiac: No angina, edema, orthopnea. GI: No heartburn, dysphagia, diarrhea. 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 Musculoskeletal: No pain. Neuro: No headache, focal weakness, tremor. Skin: No rash. Otherwise negative. Immunization History Administered Date(s) Administered Influenza Seasonal Inj Age 3+ 02/19/2016 Influenza Seasonal Inj Quadrivalent Age 3+ 04/06/2017 Pneumovax 06/24/2016 Tdap (Age 7+) 04/20/2016 Allergies were verified and updated, and medications were reconciled with the patient at this visit. PHYSICAL EXAMINATION: BP 108/60 Pulse 74 Resp 16 Wt 147 lb (66.7kg) SpO2 98% Gen: No acute distress. Cooperative with examination. ENT: Sclerae clear. EOMI. Nares clear. Oral hygeine and dentition good. Pharynx clear. Resp: No stridor, accessory respiratory muscle use, supra- sternal or intercostal retractions. No crackles, wheezes, rubs. CV: Regular rythm. Heart tones normal. Radial pulses normal. Abd: Non distended. MSK: No kyphoscoliosis, joint deformities. Ext: Warm and well perfused. No clubbing, cyanosis, edema. Skin: Color normal. Texture normal. No rash, eczema, urticaria. Neuro: Mental status normal. Affect normal. Muscle tone normal. No tremor. DATA REVIEW: CXR [facility] with bilateral lower lobe, right greater than left infiltrates concerning for pneumonia. IMPRESSION and RECOMMENDATIONS: 1. Pneumonia, unknown organism. Symptomatically doing very well. Will obtain CXR in 4 weeks to check for resolution. -Complete Prednisone course as directed. 2. Mild intermittent asthma. -Continue Breo 1 inhalation once daily every day. -Continue immunotherapy to diminish allergic response. -Avoid, as possible, trigger exposures. -Albuterol HFA metered dose inhaler, 2 inhalations as needed for shortness of breath or wheezing, up to 4 times daily. -Re-assess symptoms and exhaled NO at next office visit on October 05, 2017. I addressed the questions of the patient, and he expressed understanding and acceptance of my answers. Linda Howe PA-C [facility] [place] [address] [place] [phone] Linda Howe 08/11/2017 9:04 AM Signed 1. Pneumonia, unknown organism. Symptomatically doing very well. Will obtain CXR in 4 weeks to check for resolution. -Complete Prednisone course as directed. 2. Mild intermittent asthma. -Continue Breo 1 inhalation once daily every day. -Continue immunotherapy to diminish allergic response. -Avoid, as possible, trigger exposures. -Albuterol HFA metered dose inhaler, 2 inhalations as needed for shortness of breath or wheezing, up to 4 times daily. -Re-assess symptoms and exhaled NO at next office visit on October 05, 2017. Referring Provider: ER STAFF [[id number]] Allergies As of Date: 08/11/2017 Noted Allergy Reaction ASPIRIN 12/31/2015 12 - Shortness of Breath Date Reviewed: 08/11/2017 Reviewed by: Linda Howe - Fully Assessed Reason for Visit: Hospital Follow Up [177] Cmt: pneumonia Primary Visit Diagnosis:Pneumonia of both lower lobes due to infectious organism (HCC) [J18.1] Other Visit Diagnosis:Mild intermittent asthma without complication [J45.20] Order(s):predniSONE (DELTASONE) 10 mg tablet4 daily for 3 days, 3 daily for 3 days, 2 daily for 3 days, 1 daily for 3 days.Disp: Rfl: XR CHEST 2V FRONTAL/LAT [[id number]] Order #: [id number] FUTURE Prescriptions as of 08/11/2017 Sig: FLUTICASONE 200 MCG-VILANTERO* Inhale 1 Inhalation as instru* MULTIPLE VITAMIN ORAL Take 1 capsule by mouth once * LORAZEPAM 0.5 MG TABLET Take 1 tablet by mouth twice * ALBUTEROL SULFATE HFA 90 MCG/* Inhale 2 Puffs as instructed * LAMOTRIGINE 200 MG TABLET Take 200 mg by mouth once gama* QUETIAPINE ER 400 MG TABLET,E* Take 400 mg by mouth daily at* PREDNISONE 10 MG TABLET 4 daily for 3 days, 3 daily f* DICLOFENAC SODIUM 75 MG TABLE* Take 1 tablet by mouth twice * Medication notes this encounter FLUTICASONE 200 MCG-VILANTEROL 25 MCG/DOSE POWDER FOR INHALATION >> Cele Menjivar LPN 08/11/2017 8:40 AM >> CELE MENJIVAR LPN MonAugust 11, 2017 8:40 AM Problem List As Of Date 08/11/2017 Noted Resolved Mild intermittent asthma [J45.20] INVALID FOR* Acute deep vein thrombosis (DVT) of left lower *INVALID FOR* More... Bipolar depression (HCC) [F31.30] INVALID FOR* More... Unilateral inguinal hernia [K40.90] INVALID FOR* Pneumonia [J18.9] Other instructions from your clinician: 1. Pneumonia, unknown organism. Symptomatically doing very well. Will obtain CXR in 4 weeks to check for resolution. -Complete Prednisone course as directed. 2. Mild intermittent asthma. -Continue Breo 1 inhalation once daily every day. -Continue immunotherapy to diminish allergic response. -Avoid, as possible, trigger exposures. -Albuterol HFA metered dose inhaler, 2 inhalations as needed for shortness of breath or wheezing, up to 4 times daily. -Re-assess symptoms and exhaled NO at next office visit on October 05, 2017. Prescriptions ordered this encounter Disp Refills Start End PREDNISONE 10 MG TABLET 08/11/2017 Class: Med Update Si daily for 3 days, 3 daily for 3 days, 2 daily for 3 days, 1 daily for 3 days. Medications Discontinued During This Encounter diazePAM (VALIUM) 5 mg tablet 08/11/2017 Class: Historical Med Route: ORAL Sig: Take 5 mg by mouth every 6 hours as needed. Disc: Course of therapy completed terbinafine HCl (LAMISIL) 250 mg tab* 30 t* 2 04/29/2017 08/11/2017 Route: ORAL Sig: Take 1 tablet by mouth once daily. Disc: Course of therapy completed Disposition: Return in 8 weeks (on 10/05/2017). Follow-up and Disposition History Recorded Encounter Status:Closed by LINDA HOWE on 08/11/17 12 LEAD ELECTROCARDIOGRAM Observed: 08/04/2017 Status: F Source: [place] 12:51 PM [facility] REPOSITORY [facility] Cardiovascular Services [address] [place] [address] 12 Lead EKG 08/01/172124 MR#: [id number] Acct: [id number] Name: KOMAL ORLANDO Rep #: [id number] : 1960 57 From: David Edwards MD Attending Dr: Kate Jensen Status: DIS IN Ordering Dr: Ra Ricci MD Date: 08/01/17 [place] [facility] [place]: M C Admitted: 08/01/17 Test Reason : CP Blood Pressure : / mmHG Vent. Rate : 108 BPM Atrial Rate : 108 BPM P-R Int : 124 ms QRS Dur : 086 ms QT Int : 318 ms P-R-T Axes : 061 013 065 degrees QTc Int : 426 ms Sinus tachycardia Otherwise normal ECG Confirmed by DAVID EDWARDS MD ([id number]), development editor DORINDA SMALLWOOD ([id number]) on 08/04/2017 12:51:03 PM Referred By: JAMES Confirmed By:DAVID EDWARDS MD 08/04/17 1251 Date David Edwards MD CC: No Primary Care Physician; Kate Jensen; Ra Ricci MD Signed DISCHARGE SUMMARY Observed: 08/03/2017 Status: F Source: [place] 10:20 AM [facility] REPOSITORY [facility] Medical Records Department [address] [place] [address] Discharge Summary 08/03/17 0845 MR#: [id number] Acct: [id number] Name: KOMAL ORLANDO Rep #: [id number] : 1960 57 From: Kate Jensen PCP: Care Physician, No Primary Status: ADM IN Y [place] [facility] [place] JQ118-1 Discharge Date and Diagnosis - Problem List Patient Problems: Active and Suspected Problems COPD exacerbation (Acute) Bilateral lung bases CAP (Acute) Date of Admission: 08/01/17 Date of Discharge: 08/03/17 - Primary Discharge Diagnosis Active and Suspected Problems (1) Acute Hypoxic Respiratory Failure secondary to Acute on Chronic COPD/Asthma Exacerbation secondary to Community Acquired Pneumonia and Human Metapneumo viral infection (2) Anxiety and Depression (3) History of Prolonged 2nd Hand Tobacco Exposure (4) GERD - Secondary Discharge Diagnosis Chronic Problems COPD/asthmatic bronchitis (Chronic) Chronic sinusitis (Chronic) Anxiety and depression (Chronic) Hospital Course and Treatment Operations: None Procedures: EKG Summary of Care Provided: The patient is a 57 y/o M w/ PMHx: Notable 2nd Hand Tobacco Exposure Prolonged w/ Chronic COPD/Asthma, Anxiety and Depression/Bipolar Disorder, Chronic Sinusitis who presented to the [facility] ED on 08/01/17 with history of onset 1 week progressively worsening dyspnea, mildly productive cough with wheezing in addition to intermittent fevers and chills. Initial ED presentation w/ hypoxia, increased RR, accessory muscle usage, respiratory distress evident. CXR in the ED w/ bilateral lower lobe, right greater than left infiltrates concerning for pneumonia. Admission CBC w/ WBC 14.3 with L shift. Admitted to AL, maintained on oxygen with wean as tolerated to room air/home oxygen supplementation, continued ATC duonebs, PRN albuterol, maintain on IV solumedrol with oral transition upon discharge, maintained on IV Rocephin and Azithromycin w/ transition to oral upon discharge, HOB, IS parameters, sputum cx obtained but not adequate specimen, negative urine antigens, negative rapid flu, respiratory viral panel resulted w/ + human metapneumo virus. Oxygenation assessment with no need for home O2. Given severity of appearance and underlying pulmonary disease w/ viral infection and COPD exacerbation concurrently with PNA, patient given rx for nebulizer machine and nebulizer regimen. Patient discharged to home in improved condition with ongoing abx therapy, steroid taper, aerosols treatments with planned follow-up with Pulmonary and recommended PCP. DAY OF DISCHARGE PROGRESS NOTE: Subjective: Patient without acute event overnight per self and nursing report. Patient off oxygen, improved dyspnea, able to ambulate without severe dyspnea recurrence. Less coughing. Patient denies fever, chills, nausea, emesis, abdominal pain, chest pain. Patient agreeable to discharge to home. Patient will be discharged with follow- up with encouraged primary care physician follow-up within 3-5 days in addition to Pulmonary follow-up within 1-2 weeks. Objective: T 98.7, heart rate 89, BP 121/73, respiratory rate 16, 92% on room air with ambulation oxygenation 90% on room air. Physical Examination: General: awake, alert, oriented x 3 and cooperative, seated upright in bed in no apparent distress. Skin: normal color, turgor, no icterus, cyanosis. HEENT: AT/NC, EOMI, PERRLA, improved less dry MM. Lungs: Severely diffusely diminished, > bases, mild to moderate effort, no rales, ronchi or wheezing. Heart: Regular rate and rhythm; no gallop, rub audible. Extremities: no cyanosis, clubbing. Neurological: patient awake, alert, oriented x 3; cognitive function intact; pupils equally reactive to light and accomodation; cranial nerves II-XII grossly normal, moving all 4 extremities. Psychiatric: affect appears normalized, less fatigued, no acute evidence of depressive or anxiety feelings. Assessment and Plan: Please see hospital summary above. Discharge Activity: - - Avoid aggressive activity until completed steroid taper and antibiotic therapy as well as re-evaluation per your primary care physician and pulmonary medicine. May resume sexual activity in: 10-14 days Call your doctor if you observe: Fever of 101 or Higher, Inability to urinate, Inability to have a bowel movement, Shortness of breath, Dizziness, Fainting spells, Chest pain, Uncontrolled pain Home Medications: Medications to take at Discharge Albuterol Inhaler [Ventolin Hfa] 1 - 2 puff INHALATION Q4H PRN PRN 08/17/16 Lamotrigine [Lamictal] 200 mg PO DAILY 08/17/16 Quetiapine Fumarate [Seroquel XR] 200 mg PO QHS 08/17/16 Oxycodone HCl/Acetaminophen [Percocet 5-325] 1 - 2 tablet PO Q4H PRN PRN #30 tablet 08/19/16 Doxepin HCl 50 mg PO QHS PRN PRN 08/01/17 Fluticasone/Vilanterol [Breo Ellipta 200-25 Mcg INH] 1 puff INHALATION DAILY 08/01/17 Albuterol Aerosols [Ventolin Aerosols] 2.5 mg INHALATION Q2H PRN PRN #1 box 08/03/17 Azithromycin [Zithromax Tri-Iván] 500 mg PO DAILY #1 tab 08/03/17 Benzonatate [Tessalon Perle] 200 mg PO TID #60 cap 08/03/17 Cefdinir [Omnicef [equiv]] 300 mg PO Q12H #10 cap 08/03/17 Guaifenesin [Mucinex] 1,200 mg PO BID #20 tab 08/03/17 Ipratropium/Albuterol Sulfate [Duoneb] 3 ml INHALATION Q4HWA.RT #1 box 08/03/17 Nebulizer [Lc Plus] 1 ea UD #1 ea 08/03/17 Prednisone 10 mg PO UD #30 tab 08/03/17 Following Prescrptions Were Given to Patient: Albuterol Aerosols [Ventolin Aerosols] 2.5 mg INHALATION Q2H PRN PRN #1 box PRN Reason: SHORTNESS OF BREATH Ipratropium/Albuterol Sulfate [Duoneb] 3 ml INHALATION Q4HWA.RT #1 box Azithromycin [Zithromax Tri-Iván] 500 mg PO DAILY #1 tab Cefdinir [Omnicef [equiv]] 300 mg PO Q12H #10 cap Nebulizer [Lc Plus] 1 ea MC UD #1 ea Prednisone 10 mg PO UD #30 tab Guaifenesin [Mucinex] 1,200 mg PO BID #20 tab Benzonatate [Tessalon Perle] 200 mg PO TID #60 cap Primary Care Physician: Care Physician,No Primary [Primary Care Provider] - Please follow up with your Primary Care Physician in: Follow- up with your primary care within 3-5 days. Please Follow Up With: Thuan Borges MD When: Please follow-up within 1 week to review admission, assure improving. Patient Instructions: What is COPD?, What Is Pneumonia?, Preventing Pneumonia, Pneumonia Treatment, Discharge Instructions: COPD, Treatment for COPD Disposition: Home Minutes spent on discharge:: 35 Patient Condition:: Fair Medical Necessity - Tobacco Use Smoking Status: Never smoker Tobacco Use: Secondhand Meaningful Use Info Meaningful Use Diagnoses (Choose all that apply): None applicable Code Visit Inpatient E AND M: 08636 Disch Hosp 08/03/17 1020 <Electronically signed by Kate Jensen > Date Kate Jensen Cosigner Signature (if applicable): Date CC: No Primary Care Physician; Kate Jensen Signed DISCHARGE INSTRUCTION Observed: 08/03/2017 Status: F Source: [place] 8:38 AM [facility] REPOSITORY [facility] Medical Records Department [address] [place] [address] Instructions for Home/Discharge Instructions 08/03/17 0831 MR#: [id number] Acct: [id number] Name: KOMAL ORLANDO Rep #: [id number] : 1960 57 From: Kate Jensen PCP: Care Physician, No Primary Status: ADM IN - Discharge Diagnoses Current Active Problems: Current Active and Chronic Problems (1) Acute Hypoxic Respiratory Failure secondary to Acute on Chronic COPD/Asthma Exacerbation secondary to Community Acquired Pneumonia and Human Metapneumo viral infection (2) Anxiety and Depression (3) History of Prolonged 2nd Hand Tobacco Exposure (4) GERD You will use the following diet at home:: No restrictions Your food should be the consistency of: Regular Your liquids should be the consistency of: Regular/Thin Discharge Activity: - - Avoid aggressive activity until completed steroid taper and antibiotic therapy as well as re-evaluation per your primary care physician and pulmonary medicine. May resume sexual activity in: 10-14 days Call your doctor if you observe: Fever of 101 or Higher, Inability to urinate, Inability to have a bowel movement, Shortness of breath, Dizziness, Fainting spells, Chest pain, Uncontrolled pain Instructions: What is COPD?, Treatment for COPD, Discharge Instructions: COPD, What Is Pneumonia?, Preventing Pneumonia, Pneumonia Treatment Additional Instructions: Given your symptoms had been ongoing for 1 week prior to presentation, you are likely past the contagious period in regards to the Human metapneumo viral infection; however, please be cautious and if you are still coughing avoid direct contact given your pneumonia and COPD exacerbation concurrently. Please continue antibiotic therapy as well as steroid taper until completed. You may discontinue the coughing regimen if your cough subsides. You may use the albuterol nebulized medication as needed every 2 hours and continue the duoneb instead of your home inhaler x 1 week and then may transition back. Allergies/Adverse Reactions: Allergies aspirin Allergy (Verified 08/01/17 21:17) asthmatic reaction Medications to take at Discharge Albuterol Inhaler [Ventolin Hfa] 1 - 2 puff INHALATION Q4H PRN PRN 08/17/16 Lamotrigine [Lamictal] 200 mg PO DAILY 08/17/16 Quetiapine Fumarate [Seroquel XR] 200 mg PO QHS 08/17/16 Oxycodone HCl/Acetaminophen [Percocet 5-325] 1 - 2 tablet PO Q4H PRN PRN #30 tablet 08/19/16 Doxepin HCl 50 mg PO QHS PRN PRN 08/01/17 Fluticasone/Vilanterol [Breo Ellipta 200-25 Mcg INH] 1 puff INHALATION DAILY 08/01/17 Albuterol Aerosols [Ventolin Aerosols] 2.5 mg INHALATION Q2H PRN PRN #1 box 08/03/17 Azithromycin [Zithromax Tri-Iván] 500 mg PO DAILY #1 tab 08/03/17 Benzonatate [Tessalon Perle] 200 mg PO TID #60 cap 08/03/17 Cefdinir [Omnicef [equiv]] 300 mg PO Q12H #10 cap 08/03/17 Guaifenesin [Mucinex] 1,200 mg PO BID #20 tab 08/03/17 Ipratropium/Albuterol Sulfate [Duoneb] 3 ml INHALATION Q4HWA.RT #1 box 08/03/17 Nebulizer [Lc Plus] 1 ea MC UD #1 ea 08/03/17 Prednisone 10 mg PO UD #30 tab 08/03/17 The following prescriptions were given: Albuterol Aerosols [Ventolin Aerosols] 2.5 mg INHALATION Q2H PRN PRN #1 box PRN Reason: SHORTNESS OF BREATH Ipratropium/Albuterol Sulfate [Duoneb] 3 ml INHALATION Q4HWA.RT #1 box Azithromycin [Zithromax Tri-Iván] 500 mg PO DAILY #1 tab Cefdinir [Omnicef [equiv]] 300 mg PO Q12H #10 cap Nebulizer [Lc Plus] 1 ea MC UD #1 ea Prednisone 10 mg PO UD #30 tab Guaifenesin [Mucinex] 1,200 mg PO BID #20 tab Benzonatate [Tessalon Perle] 200 mg PO TID #60 cap Primary Care Physician: Care Physician,No Primary [Primary Care Provider] - Please follow up with your Primary Care Physician in: Follow- up with your primary care within 3-5 days. Please Follow Up With: Thuan Borges MD When: Please follow-up within 1 week to review admission, assure improving. Proposed Discharge Date: 08/03/17 08/03/17 0838 <Electronically signed by Kate Jensen > Date Kate Jensen CC: No Primary Care Physician Observed: 08/02/2017 Status: F Source: [place] CULTURE, SPUTUM 4:55 PM [facility] REPOSITORY Gram Stain Acceptable Specimen? Yes (<25 Epithelial cells per/lpf) Gram Stain 4+ White Blood Cells Rare Gram negative rods 1+ Gram positive cocci Rare Gram positive rods Resp. Culture Mixed normal respiratory yoselyn. No Haemophilus, Streptococcus pneumoniae, beta-hemolytic Streptococcus or Staphylococcus aureus isolated. Performed By: #### M100.0800 #### [facility] [address] [facility] [facility] [address] [facility] [address] [place], [place], [id number] Observed: 08/02/2017 Status: F Source: [place] RESPIRATORY PANEL 9:25 AM [facility] MOLECULAR REPOSITORY RP PANEL Normal Reference Range = Not Detected Copy of report sent to Infection Control Printer [id number] 08/02/17 1239 ELIESER. RESULTS CALLED TO CHERRY 08/02/17 1241 Daisy Fletcher. REPORT READ BACK BY [facility]. ADENOVIRUS Not Detected HUMAN METAPHNEUMO Positive for HUMAN METAPHNEUMO VIRUS by NAAT technology INFLUENZA A Not Detected INFLUENZA A (SUBTYPE H1) Not Detected INFLUENZA A (SUBTYPE H3) Not Detected INFLUENZA B Not Detected PARAINFLUENZA 1 Not Detected PARAINFLUENZA 2 Not Detected PARAINFLUENZA 3 Not Detected PARAINFLUENZA 4 Not Detected RHINOVIRUS Not Detected RSV A Not Detected RSV B Not Detected NAAT METHOD Testing was performed using nucleic acid amplification ORGANISM 1: HUMAN META Performed By: #### M100.638 #### [facility] [address] [facility] [address] [facility] [address] [place], [place], [id number] Observed: 08/02/2017 Status: F Source: [place] LEGIONELLA ANTIGEN 12:50 AM [facility] URINE REPOSITORY Specimen Source: URINE, RANDOM Legionella, UR Legionella Antigen result interpretation: Negative Presumptive negative for Legionella pneumophila serogroup 1 antigen in urine, suggesting no recent or current infection. Legionella Ag, Urine Negative (See interpretation below) Performed By: #### M300.4500 #### [facility] [address] [place], [address] STREP Observed: 08/02/2017 Status: F Source: [place] PNEUMONIAE ANTIG(UR,CSF) 12:50 AM [facility] REPOSITORY S pneumo Ag URINE INTERPRETATION Negative Urine Presumptive negative for pneumococcal pneumonia, suggesting no current or recent pneumococcal infection. Infection due to S pneumoniae cannot be ruled out since the antigen present in the sample may be below the detection limit of the test. Strep pneumo Test Negative URINE (See interpretation below) Performed By: #### M300.4600 #### [facility] [address] [facility] [place], [address] URINALYSIS, ROUTINE Collected: 08/02/2017 Status: F Source: [place] (DIPSTICK) 12:50 AM [facility] REPOSITORY Order Comment: How was Urine Obtained? FIELD RECORDER TO SPECIFY TYPE CODE TESTS RESULT OUT OF RANGE REFERENCE UNITS LAB L400.3000 Yellow COLOR Normal Yellow LAB L400.3050 Clear Normal CLARITY Clear LAB L400.3200 Normal mg/dl High 50 GLUCOSE, UR LAB L400.3300 Negative mg/dL Normal BILIRUBIN URINE Negative LAB L400.3400 Negative mg/dl Normal KETONE UR Negative LAB L400.3465 1.002-1.030 Normal SP.GR. DIPSTX 1.010 LAB L400.3550 5.0 - 8.0 pH UR Normal 6.5 LAB L400.3600 Negative mg/dl PROT Normal DIPSTX Negative LAB L400.3700 Normal mg/dl Normal UROBILI Normal LAB L400.3750 Negative Normal NITRITE UR Negative LAB L400.3780 Negative /ul Normal OCCULT BLOOD-UR Negative LAB L400.3800 Negative /ul LEUK Normal ESTERASE Negative Performed By: #### L400.2011 #### [facility] [address] [place], [address] EMERGENCY DEPARTMENT Observed: 08/02/2017 Status: F Source: [place] SUMMARY 12:34 AM [facility] REPOSITORY [facility] Medical Records Department [address] [place] [address] Emergency Department Summary 08/01/17 2350 MR#: [id number] Acct: [id number] Name: KOMAL ORLANDO Rep #: [id number] : 1960 57 From: Ra Ricci MD PCP: Care Physician, No Primary Status: ADM IN - ER Visit Summary Date of Service: 08/01/17 Chief Complaint: Cough History of Present Illness: The patient is a 57 M who goes to [facility]. He sees Dr. Borges, neurology. He reports that he has a cough began approximately 1 week ago. Is productive of clear sputum without blood. He reports he had a fever to 103 . Is also had chills and sweats. Reports that he has moderate to severe shortness of breath and has been wheezing. He is using his inhaler with mild and transient relief. States he has a sore throat is 2 out of 10 severity and generalized weakness. Also complains of myalgias. Physical Examination: Vitals: 100.4, 127/82, 103, 20, 90% on room air which is hypoxic. General: Well-nourished and well-developed. Head: Normocephalic atraumatic. Neck: Supple, no lymphadenopathy. No JVD. Nontender. Cardiovascular: Tachycardic regular rhythm. No murmurs. Respiratory: No respiratory distress. Mild wheezing bilaterally with decreased air movement. Abdominal: Soft, nontender, nondistended, normal bowel sounds. No guarding, rebound, or peritoneal signs. Back: Nontender. Extremities: Nontender, no edema. Skin: Normal color, no rash. Neurologic: Alert and oriented 3. Cranial nerves II through XII are intact. Normal strength and sensation. Psych: Normal affect. Test Results: Chest x-ray shows bilateral lower lobe infiltrates right greater than left. EKG sinus tachycardia [address] changes. Influenza is negative. Lactic acid is 1.4. Chem-7 is more for BUN of 25 and glucose 141. CBC is marked for white count of 14.3 with 81 segmented neutrophils and 11 lymphocytes. Emergency Department Course and Treatment: She was treated albuterol Atrovent aerosols. He is given Solu-Medrol IV. Is given Rocephin and Zithromax IV. He is resting comfortably. Treatment Plan: The patient was discussed with Dr. Saunders. He will be admitted to the hospital for further relation and treatment. Disposition: Admitted in improved condition. Impression: 1. Pneumonia, community-acquired. 2. Hypoxia. This note was generated with [employer] dictation software. It may contain incorrect words, spelling, and punctuation that were not noted in review of the chart prior to signing ED Disposition - Plan for ED Patient: Chief Complaint: General Illness What to do if you have Problems For any increased pain, shortness of breath, bleeding, nausea or vomiting, chest pain, or any unexpected problems, contact your Primary Care Provider. Call [facility] ([phone]) or report to the closest Emergency Room. Call 911 if necessary. 08/02/17 0034 <Electronically signed by Ra Ricci MD> Date Ra Ricci MD Cosigner Signature (If Indicated): Date CC: No Primary Care Physician HISTORY AND PHYSICAL Observed: 08/02/2017 Status: F Source: [place] EXAM 12:28 AM [facility] REPOSITORY [facility] Medical Records Department [address] [place] [address] History and Physical 08/01/17 2333 MR#: [id number] Acct: [id number] Name: KOMAL ORLANDO Rep #: [id number] : 1960 57 From: Armando Saunders MD PCP: Care Physician, No Primary Status: ADM IN Y [place] [facility] [place] Problem List (1) COPD/asthmatic bronchitis Status: Chronic (2) COPD exacerbation Status: Acute (3) Bilateral lung bases CAP Status: Acute (4) Chronic sinusitis Status: Chronic (5) Anxiety and depression Status: Chronic History of Present Illness Date of Admission: 08/01/17 Chief Complaint: Shortness of breath and fever The patient is a 57 year old M with history of COPD/asthmatic bronchitis and chronic sinusitis, 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 He had intermittent fevers chills with highest 103 Fahrenheit today. Patient also complained of sore throat. In ED, was noted to have tachycardia; 110/min, tachypnea; 22/min and hypoxia 93% on 2 L of oxygen. Chest x-ray reviewed and shows bilateral densities at both lung base, right worse than left. EKG mild sinus tachycardia at 108/min with nonspecific ST- T changes. QTc 426 ms. [] Past Medical History Past Medical History (Chronic Problems): Chronic Problems COPD/asthmatic bronchitis (Chronic) Chronic sinusitis (Chronic) Anxiety and depression (Chronic) Allergies aspirin Allergy (Verified 08/01/17 21:17) asthmatic reaction Home Medications: Ambulatory Orders Medication Instructions Recorded Albuterol Inhaler [Ventolin Hfa 1 - 2 puff INHALATION Q4H PRN PRN 08/17/16 Smoking Status: Never smoker - *Family History Paternal History Items: No pertinent history Review of Systems Constitutional: Reports: Chills, Fever, Malaise, Weakness, Fatigue. Denies: Weight Change HEENT: Reports: Sinus Congestion, Sinus Drainage, Sore Throat. Denies: Head Aches Cardiovascular: Denies: Chest Pain, Palpitations Respiratory: Reports: Cough, Shortness of breath at rest, Shortness of breath upon exertion, Sputum production Gastrointestinal: Denies: Abdominal Pain, Nausea, Vomiting Genitourinary: Denies: Dysuria Musculoskeletal: Denies: Joint Pain, Joint Tenderness Skin: Denies: Rash, Wounds Neurological: Denies: Numbness, Tingling, Focal weakness Psychiatric: Denies: Anxiety, Depression, Homicidal Ideations, Suicidal Ideations Hematologic/ Lymphatic: Denies: Easy Bruising, Easy Bleeding VTE Information - Inpt Only VTE Present on Admission: No VTE Mechan Device Prophylaxis: SCD's VTE Pharm Prophylaxis ordered?: Yes Patient Problems: Active and Suspected Problems COPD exacerbation (Acute) Bilateral lung bases CAP (Acute) - Physical Exam General: Alert, Oriented x3, Cooperative HEENT: Atraumatic, PERRLA, EOMI, Normocephalic Oral: Dry Mucosa, - - No oral/pharyngeal erythema or exudate Neck: Supple, No JVD, Negative Carotid Bruits Lungs: Diminished, Rhonchi, Short of Breath, Tachypneic, Wheezes Cardiovascular: Regular Rhythm, Normal S1, Normal S2, No murmurs, Tachycardic Abdomen: Bowel Sounds Present, Soft, Non Tender, Non-Distended Extremities: No edema, Capillary Refill Less than 3 Seconds Skin: No rashes, No breakdown Musculoskeletal: No Tenderness to Palpation of Joints or Extremities Neurological: Cranial nerves II-XII grossly intact Psych/Mental Status: Normal Affect, Appropriate Vital Signs Temp Pulse Resp BP Pulse Ox 100.4 F H 103 H 15 121/77 H 92 08/01/17 21:14 08/01/17 23:14 08/01/17 23:14 08/01/17 23:14 08/01/17 23:14 Oxygen Flow Rate (L/min) 2 Oxygen Delivery Method Nasal Cannula Weight: 148 lb 9.465 oz Body Mass Index (BMI) 21.3 Microbiology Past 72 Hours 08/01/17 21:30 Influenza Types A,B Direct FA (EMILY) - Final Mucosa - Nose Laboratory Tests Past 24 Hrs WBC 14.3 H RBC 4.70 Hgb 13.9 Hct 41.2 MCV 87.7 MCH 29.6 MCHC 33.7 RDW 12.2 RDW Differential 38.8 Plt Count 192 Assessment/Plan Active and Suspected Problems COPD exacerbation (Acute) Bilateral lung bases CAP (Acute) The patient is a 57 year old M with history of COPD/asthmatic bronchitis and chronic sinusitis, follows Dr. 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 He had intermittent fevers chills with highest 103 Fahrenheit today. Patient also complained of sore throat. In ED, was noted to have tachycardia; 110/min, tachypnea; 22/min and hypoxia 93% on 2 L of oxygen. Chest x-ray reviewed and shows bilateral densities at both lung base, right worse than left. EKG mild sinus tachycardia at 108/min with nonspecific ST- T changes. QTc 426 ms. 1. Acute hypoxic respiratory failure secondary to bilateral lung bases community acquired pneumonia/and COPD exacerbation: Patient is being admitted on the regular floor. Oxygen therapy as per protocol. 2. SIRS ( tachycardia; 110/min, tachypnea; 22/min and hypoxia 93% on 2 L of oxygen, leukocytosis with left shift) due to bilateral lung bases, community acquired pneumonia: Lactic acid is normal. Patient started on IV Rocephin and Zithromax. Patient is also on anti-depression medications including Seroquel DAILY and doxepin as needed for insomnia. QTc is 426 ms. EKG ordered for tomorrow evening. If QTC prolongation, discontinue Zithromax and start Doxy. Pneumonia workup ordered including blood cultures 2, sputum culture and urinary antigens. Influenza a and B are negative. 3. COPD exacerbation with history of COPD/asthmatic bronchitis: On bronchodilator DuoNeb, scheduled every 4 hourly and albuterol as needed. On IV Solu- Medrol. Incentive spirometry and chest physiotherapy and Mucinex. Hypoglycemia 141: A1c tomorrow a.m. 4. History of anxiety and depression: On Seroquel and doxepin as needed as mentioned above DVT prophylaxis: Lovenox and bilateral SCDs. [] Microbiology Past 72 Hours 08/01/17 21:30 Mucosa - Nose Influenza Types A,B Direct FA (EMILY) - Final Laboratory Results 08/01/17 21:55: WBC 14.3 H, RBC 4.70, Hgb 13.9, Hct 41.2, MCV 87.7, MCH 29.6, MCHC 33.7, RDW 12.2, RDW Differential 38.8, Plt Count 192, MPV 11.1, Immature Gran % (Auto) 0.300, Neut % (Auto) 80.8 H, Lymph % (Auto) 11.0 L, [place] % (Auto) 7.8, Eos % (Auto) 0.0, Baso % (Auto) 0.1, Absolute Neuts (auto) 11.6 H, Absolute Lymphs (auto) 1.58, Total Counted Not Reportable 08/01/17 21:55: Sodium 137, Potassium 3.5, Chloride 102, Carbon Dioxide 26.0, Anion Gap 9, BUN 25 H, Creatinine 1.28, Estim Creat Clear Calc 62.16, Est GFR (MDRD) Af Amer 75, Est GFR (MDRD) Non-Af 62, BUN/Creatinine Ratio 19.5, Glucose 141 H, Calcium 8.5 08/01/17 21:55: Lactic Acid 1.4 Clinical Impression(s) from Imaging Studies Chest X-Ray 08/01/17 21:28 IMPRESSION: Poorly defined increased density in both lung bases, right worse than left and most pronounced on the lateral view. Findings are consistent with atelectasis or infiltrates. This note was generated with [employer] dictation software. Every effort was made to ensure accuracy, however computerized institution librarian mistakes may persist. Code Visit Inpatient E AND M: 74724 Subs Hosp L3 08/02/17 0028 <Electronically signed by Armando Saunders MD> Date Armando Saunders MD Cosigner Signature: Date (if applicable) CC: No Primary Care Physician; Armando Saunders MD Signed CBC W/DIFF, AUTOMATED Collected: 08/01/2017 Status: F Source: [place] 9:55 PM [facility] REPOSITORY TYPE CODE TESTS RESULT OUT OF RANGE REFERENCE UNITS LAB L100.1000 4.4-11.0 K/mm3 High WBC 14.3 LAB L100.1200 4.6-6.2 M/mm3 Normal RBC 4.70 LAB L100.1300 13.0-16.5 g/dl Normal HGB 13.9 LAB L100.1400 40-54 % Normal HCT 41.2 LAB L100.1500 80-94 fL Normal MCV 87.7 LAB L100.1600 27.0-32.0 pg Normal MCH 29.6 LAB L100.1700 32-36 g/gl Normal MCHC 33.7 LAB L100.1810 11.6-14.6 % Normal RDW CV 12.2 LAB L100.1820 35.1-43.9 fl Normal RDW SD 38.8 LAB L100.1900 150-450 K/mm3 Normal PLT 192 LAB L100.2000 6.2-12.0 fl Normal MPV 11.1 LAB L100.2100 47-70 % High NEUT% 80.8 LAB L100.2200 19-41 % Low LY% 11.0 LAB L100.2300 0-10 % Normal MONO% 7.8 LAB L100.2400 0-5 % Normal EO% 0.0 LAB L100.2500 0-1 % Normal BASO% 0.1 LAB L100.2550 0.0-0.9 % Normal IM GRAN % 0.300 Result Comment: IG% - Immature Granulocytes (promyelocytes, myelocytes and metamyelocytes) > 1% indicates that a LEFT SHIFT is Present. LAB L100.2620 2.0-7.7 X10 3/uL High Absolute Neut 11.6 LAB L100.2720 0.83-4.51 X10 3/ul Normal Absolute Lymph 1.58 Performed By: #### L100.0100 #### [facility] [address] [place], [address] BASIC METABOLIC Collected: 08/01/2017 Status: F Source: [place] PROFILE (BMP) 9:55 PM [facility] REPOSITORY TYPE CODE TESTS RESULT OUT OF RANGE REFERENCE UNITS LAB L501.0100 74-106 mg/dL High GLU 141 Result Comment: Fasting Glucose result greater than or equal to 126 mg/dL suggests DIABETES MELLITUS per A.D.A. criteria. Please note revised GLUCOSE reference range effective 2017. LAB L501.1000 7-18 mg/dL High BUN 25 LAB L501.1100 0.70-1.30 mg/dL Normal CREAT,SERUM 1.28 Result Comment: The validity of the calculated GFR AND GFRAA in patients over 70 years has not been determined. Clinical correlation is essential. LAB L501.1110 >60 mL/min Normal EST GFR 62 Result Comment: Non- GFR Calc LAB L501.1115 >60 mL/min Normal EST GFR - AA 75 Result Comment: GFR Calc LAB L501.1255 ml/min Normal Estimated CRCL 62.16 LAB L501.1300 10-20 RATIO Normal BUN/CRE 19.5 LAB L501.2200 8.5-10 mg/dL Normal .1 CA 8.5 LAB L501.5300 136-14 mmol/L Normal 5 NA 137 LAB L501.5600 3.5-5. mmol/L Normal 1 K 3.5 LAB L501.5900 98-107 mmol/L Normal CL 102 LAB L501.6100 21.0-3 mmol/L Normal 2.0 CO2 26.0 LAB L501.6200 5-15 Normal GAP 9 Performed By: #### L500.2500 #### [facility] [address] [place], [place], [id number] LACTIC ACID Collected: 08/01/2017 Status: F Source: [place] 9:55 PM [facility] REPOSITORY Order Comment: Yes/No query for Sepsis Lactate Rule Y TYPE CODE TESTS RESULT OUT OF RANGE REFERENCE UNITS LAB L503.6005 0.4-2.0 mmol/L Normal LACTIC ACID 1.4 Performed By: #### L503.6005 #### [facility] [address] [place], [place], [id number] Observed: 08/01/2017 Status: F Source: [place] CULTURE, BLOOD (WB) 9:55 PM [facility] REPOSITORY BC No growth in 5 days. Performed By: #### M200.1000 #### [facility] [place], [place], [address] Observed: 08/01/2017 Status: F Source: [place] CULTURE, BLOOD (WB) 9:40 PM [facility] REPOSITORY BC No growth in 5 days. Performed By: #### M200.1000 #### [facility] [place], [place], [id number] Observed: 08/01/2017 Status: F Source: [place] INFLUENZA A+B (RAPID 9:30 PM [facility] THU) REPOSITORY FLU A/B Rapid Negative test results should be confirmed by culture. Order Rapid Viral Culture for Influenzae A+B ([id number]) if clinically indicated. Influenza Ag, Direct Presumptive NEGATIVE for Influenza A/B Antigen (See Note) Performed By: #### M101.0101 #### [facility] [address] [place], [place], [id number] CHEST PA AND LATERAL Observed: 08/01/2017 Status: F Source: [place] 9:29 PM [facility] REPOSITORY [facility] Imaging Services [address] [place] [address] Chest PA and Lateral MR#: [id number] Acct: [id number] Name: KOMAL ORLANDO Rep #: [id number] : 1960 M 57 From: Valentin Michaud MD PCP: Care Physician, No Primary Status: REG ER Study: Chest PA and Lateral Date of Exam: 08/01/17 Exam# [id number] Ordering Dr: Ra Ricci MD STUDY: X-RAY CHEST REASON FOR EXAM: Male, 57 years old. Fever and cough. TECHNIQUE: Frontal and lateral views of the chest. COMPARISON: None. FINDINGS: Normal lung volumes. Poorly defined increased density in both lung bases, right worse than left and most pronounced on the lateral view. Findings are consistent with atelectasis or infiltrates. No effusions. Normal size heart. Normal mediastinum and delia. Normal visualized pulmonary arteries. Normal visualized aortic arch and descending thoracic aorta. Normal visualized thoracic spine. Normal visualized ribs, clavicles, and shoulders. There is no demonstrated abnormality of the visualized soft tissue structures of the upper abdomen. RAD/Chest PA and Lateral IMPRESSION: Poorly defined increased density in both lung bases, right worse than left and most pronounced on the lateral view. Findings are consistent with atelectasis or infiltrates. Electronically Signed: Valentin Michaud MD at 22:18 EDT , Service support , CC: No Primary Care Physician; Ra Ricci MD [employer]oc Operations Intelligence Officer: Signed CNOV Observed: 08/01/2017 Status: COMPLETED Source: [place] 8:45 PM [facility] REPOSITORY [facility] KOMAL ORLANDO ([id number]) 1960 M FER Date Time Provider Department 08/01/17 8:45 PM KYLAH MONTES (KENO DEALER) [facility] During your visit today, we recorded the following information about you: Temperature Pulse Respiration Blood pressure 101.7 degrees 114/minute 18/minute 152/94 Weight 67.1 kg Kylah Montes APRN.[employer] DOOR HANGER 08/03/2017 1:29 PM Signed Subjective HPI Patient presents with: Chest Congestion: sinus congestion, chills, fever x 7 days Book Critic prescribed prednisone and Amoxil 7 days ago and worsening. Review of Systems Constitutional: Positive for chills and fever. Negative for malaise/fatigue. HENT: Positive for congestion. Negative for ear pain and sore throat. Eyes: Negative for discharge and redness. Respiratory: Positive for cough, shortness of breath and wheezing. Negative for hemoptysis and sputum production. Gastrointestinal: Negative for abdominal pain, diarrhea, nausea and vomiting. Skin: Negative for rash. Neurological: Negative for headaches. PAST MEDICAL HISTORY Diagnosis Date - Anxiety - Asthma - Chicken pox - Depression - Inguinal hernia - Pneumonia PAST SURGICAL HISTORY Procedure Laterality Date - INGUINAL HERNIA REPAIR HX Left 08/2016 Leonardo - SINUS SURGERY HX x3 ALLERGIES Aspirin MEDICATIONS terbinafine HCl (LAMISIL) 250 mg tablet Take 1 tablet by mouth once daily. diclofenac, EC, (VOLTAREN) 75 mg EC tablet Take 1 tablet by mouth twice daily. FOR PAIN albuterol HFA (VENTOLIN HFA) 90 mcg/actuation inhaler Inhale 2 Puffs as instructed every 4 hours as needed for Wheezing/Shortness of Breath. lamoTRIgine (LAMICTAL) 200 mg tablet Take 200 mg by mouth once daily. QUEtiapine XR (SEROQUEL XR) 400 mg 24 hr tablet Take 400 mg by mouth daily at bedtime. diazePAM (VALIUM) 5 mg tablet Take 5 mg by mouth every 6 hours as needed. fluticasone-vilanterol (BREO ELLIPTA) 200-25 mcg/dose inhaler Inhale 1 Inhalation as instructed once daily. MULTIVITAMIN (MULTIPLE VITAMIN ORAL) Take 1 capsule by mouth once daily. LORazepam (ATIVAN) 0.5 mg tab Take 1 tablet by mouth twice daily as needed (For anxiety as needed). FAMILY HISTORY Problem Relation Age of Onset - Heart Disease [OTHER] Maternal Grandfather - Heart Disease [OTHER] Paternal Grandfather - Diabetes Mother - CHF [OTHER] Mother - Unknown [OTHER] Father - None Sister Social History Substance Use Topics - Smoking status: Never Smoker - Smokeless tobacco: Never Used - Alcohol use Yes Comment: very little Objective Physical Exam Constitutional: He has a sickly appearance. Pulmonary/Chest: No tachypnea and no bradypnea. He has wheezes. He has rales (throughout). Nursing note and vitals reviewed. ASSESSMENT/PLAN: 1. Lower resp. tract infection - ICD9: 519.8, ICD10: J22 -Recommended further eval/tx at local ED immediately for suspected double pneumonia and low pulse ox. -Pt refused squad transfer - will transport in private car Prescription instructions reviewed with patient as applicable. Patient advised if symptoms do not improve or if symptoms worsen sooner, to contact their primary care physician. Potential red flag symptoms discussed with the patient. Reviewed appropriate action plan to take if red flag symptoms occur. Patient agreeable to treatment plan. Kylah Montes APRN.[employer] DOOR HANGER Referring Provider: SELF [200] Allergies As of Date: 08/01/2017 Noted Allergy Reaction ASPIRIN 12/31/2015 12 - Shortness of Breath Date Reviewed: 08/01/2017 Reviewed by: Hilario Gallegos Ma - Fully Assessed Reason for Visit: Chest Congestion [236] Cmt: sinus congestion, chills, fever x 7 days Primary Visit Diagnosis:Lower resp. tract infection [J22] Prescriptions as of 08/01/2017 Sig: TERBINAFINE HCL 250 MG TABLET Take 1 tablet by mouth once d* DICLOFENAC SODIUM 75 MG TABLE* Take 1 tablet by mouth twice * ALBUTEROL SULFATE HFA 90 MCG/* Inhale 2 Puffs as instructed * LAMOTRIGINE 200 MG TABLET Take 200 mg by mouth once gama* QUETIAPINE ER 400 MG TABLET,E* Take 400 mg by mouth daily at* DIAZEPAM 5 MG TABLET Take 5 mg by mouth every 6 ho* FLUTICASONE 200 MCG-VILANTERO* Inhale 1 Inhalation as instru* MULTIPLE VITAMIN ORAL Take 1 capsule by mouth once * LORAZEPAM 0.5 MG TABLET Take 1 tablet by mouth twice * Medication notes this encounter DIAZEPAM 5 MG TABLET >> Hilario Gallegos Ma 08/01/2017 8:47 PM >> HILARIO GALLEGOS MA Aug 01, 2017 8:47 PM done MULTIPLE VITAMIN ORAL >> Hilario Gallegos Ma 08/01/2017 8:48 PM >> HILARIO GALLEGOS MA Aug 01, 2017 8:48 PM done Problem List As Of Date 08/01/2017 Noted Resolved Mild intermittent asthma [J45.20] INVALID FOR* Acute deep vein thrombosis (DVT) of left lower *INVALID FOR* More... Bipolar depression (HCC) [F31.30] INVALID FOR* More... Unilateral inguinal hernia [K40.90] INVALID FOR* Follow-up and Disposition History Recorded Encounter Status:Closed by KYLAH MONTES on 08/03/17 PROGRESS Observed: 08/01/2017 Status: COMPLETED Source: [place] 1:20 PM [facility] REPOSITORY HNO ID: [id number] Author: Kylah Chacon (Seasonal Greenery Bundler) Kavin Service: (none) Author Type: Nurse Practitioner Type: Progress Notes Filed: 08/03/2017 1:29 PM Note Text: Subjective HPI Patient presents with: Chest Congestion: sinus congestion, chills, fever x 7 days Book Critic prescribed prednisone and Amoxil 7 days ago and worsening. Review of Systems Constitutional: Positive for chills and fever. Negative for malaise/fatigue. HENT: Positive for congestion. Negative for ear pain and sore throat. Eyes: Negative for discharge and redness. Respiratory: Positive for cough, shortness of breath and wheezing. Negative for hemoptysis and sputum production. Gastrointestinal: Negative for abdominal pain, diarrhea, nausea and vomiting. Skin: Negative for rash. Neurological: Negative for headaches. PAST MEDICAL HISTORY Diagnosis Date - Anxiety - Asthma - Chicken pox - Depression - Inguinal hernia - Pneumonia PAST SURGICAL HISTORY Procedure Laterality Date - INGUINAL HERNIA REPAIR HX Left 08/2016 Leonardo - SINUS SURGERY HX x3 ALLERGIES Aspirin MEDICATIONS terbinafine HCl (LAMISIL) 250 mg tablet Take 1 tablet by mouth once daily. diclofenac, EC, (VOLTAREN) 75 mg EC tablet Take 1 tablet by mouth twice daily. FOR PAIN albuterol HFA (VENTOLIN HFA) 90 mcg/actuation inhaler Inhale 2 Puffs as instructed every 4 hours as needed for Wheezing/Shortness of Breath. lamoTRIgine (LAMICTAL) 200 mg tablet Take 200 mg by mouth once daily. QUEtiapine XR (SEROQUEL XR) 400 mg 24 hr tablet Take 400 mg by mouth daily at bedtime. diazePAM (VALIUM) 5 mg tablet Take 5 mg by mouth every 6 hours as needed. fluticasone-vilanterol (BREO ELLIPTA) 200-25 mcg/dose inhaler Inhale 1 Inhalation as instructed once daily. MULTIVITAMIN (MULTIPLE VITAMIN ORAL) Take 1 capsule by mouth once daily. LORazepam (ATIVAN) 0.5 mg tab Take 1 tablet by mouth twice daily as needed (For anxiety as needed). FAMILY HISTORY Problem Relation Age of Onset - Heart Disease [OTHER] Maternal Grandfather - Heart Disease [OTHER] Paternal Grandfather - Diabetes Mother - CHF [OTHER] Mother - Unknown [OTHER] Father - None Sister Social History Substance Use Topics - Smoking status: Never Smoker - Smokeless tobacco: Never Used - Alcohol use Yes Comment: very little Objective Physical Exam Constitutional: He has a sickly appearance. Pulmonary/Chest: No tachypnea and no bradypnea. He has wheezes. He has rales (throughout). Nursing note and vitals reviewed. ASSESSMENT/PLAN: 1. Lower resp. tract infection - ICD9: 519.8, ICD10: J22 -Recommended further eval/tx at local ED immediately for suspected double pneumonia and low pulse ox. -Pt refused squad transfer - will transport in private car Prescription instructions reviewed with patient as applicable. Patient advised if symptoms do not improve or if symptoms worsen sooner, to contact their primary care physician. Potential red flag symptoms discussed with the patient. Reviewed appropriate action plan to take if red flag symptoms occur. Patient agreeable to treatment plan. Kylah Montes APRN.[employer] G[employer] DOOR HANGER PROGRESS Observed: 06/05/2017 Status: COMPLETED Source: [place] 2:39 PM [facility] REPOSITORY HNO ID: [id number] Author: Bessie (Pt) Kemar Service: (none) Author Type: Physical Therapist Type: Progress Notes Filed: 06/05/2017 2:40 PM Note Text: [facility] PHYSICAL THERAPY DISCONTINUANCE OF CARE Plan of Care Period: No Data Recorded Last Visit Date: 12/01/2016 Therapy Program: Patient did not return for follow up care as planned. Please refer to last visit note for interventions provided for this episode of care. Assessment: Unable to formally assess goal achievement due to non-compliance with therapy plan of care. Reason for Discontinuation of Care: Patient has not returned to therapy or scheduled additional follow-up appointments. Bessie Reinoso, PT ALLERGIES ALLERGIES DATE TYPE / CODE NAME / CODE REACTION SEVERITY SOURCE 03/13/2018 Drug aspirin/[id number] asthmatic Unknown [facility] Allergy/416 1587(RXNORM) reaction Hospital 700329(SNOM Repository ED CT) 12/[facility] [place] [address](SNOM Repository ED CT) ENCOUNTERS ENCOUNTERS ADMIT/DISCHARGE ACCOUNT ADMITTING ENCOUNTER LOCATION SOURCE NUMBER CLASS 03/20/2018 [id number] Ambulatory BMSBuilding:W [facility] Repository 03/20/2018/03/20/[id number] ing:SDCRoom: Repository AC01 02/20/[id number] [facility] ing:MRI Repository 02/19/2018/02/22/20 [id number] Ambulatory [address] Repository 12/23/[id number] [facility] ing:CT Repository 10/05/2017/10/10/19 [id number] Ambulatory [address] Repository 10/05/2017/10/11/19 [id number] Ambulatory [address] Repository 08/11/2017/08/16/19 [id number] Ambulatory [address] Repository 08/02/2017/08/04/19 [id number] Ambulatory BMSBuilding:W [address] Repository 08/01/2017/08/04/19 [id number] [facility], Inpatient [address] ing:DJ3Mgwh: Repository GF532Utp: 1 08/01/2017 [id number] [facility], Ambulatory BMSBuilding:Ramandeep Roberts [facility] Repository 08/01/2017 [id number] [facility], Ambulatory BMSBuilding:Ramandeep Roberts [facility] Repository 08/01/2017 [id number] [facility], Ambulatory BMSBuilding:Ramandeep Roberts [facility] Repository 08/01/2017/04/27 [id number] Ambulatory [address] Repository 12/01/2016/12/02/19 [id number] Ambulatory [address] Repository PAYERS PAYERS ENCOUNTER GUARANTOR PAYER SUBSCRIBER SOURCE 03/20/2018 KOMAL Beck Primary KOMAL [id number] Insurance:ANTHEMPolic MARULLODOB: Community [place]: [id number] [id number] Repository [address]Mra: (504) Date:5442-65-74[phone] () [id number] [place] [address]MF: 03/20/2018 Secondary KOMAL Willis Insurance:CARESOURCEP MARULLODOB: [facility] oly Number: [id number] Hospital [id number] Repository Date:2018-02-13 [address]ATTN: [place] [address]SF: 03/20/2018 Tertiary NOT GIVENUNK [place] Insurance:SELF PAY [facility] Number: Effective Repository Date:2018-03-20 03/20/2018 KOMAL Beck Primary KOMAL [id number] Insurance:ANTHEMPolic MARULLODOB: [facility] y [place]: [id number] [id number] Repository [address]Xwj: (504) Date:3953-82-68[phone] () [id number] [place] [address] 867[address]AR: 03/20/2018 Secondary KOMAL Willis Insurance:CARESOURCEP MARULLODOB: [facility] Number: [id number] [id number] Repository Date:2018-02-13 [address]ATTN: [place] [address]MX: 03/20/2018 Tertiary NOT GIVENUNK [place] Insurance:SELF PAY [facility] Number: Effective Repository Date:2018-02-13 02/20/2018 KOMAL Beck Primary KOMAL [id number] Insurance:ANTHEMPolic MARULLODOB: [facility] y [place]: [id number] [id number] Repository [address]Jfh: (504) Date:7941-82-86[phone] () [id number], [place] [address]SP: 02/20/2018 Secondary KOMAL C [place] Insurance:CARESOURCEP MARULLODOB: [facility] Number: [id number] Hospital [id number] Repository Date:2018-02-13 [address]ATTN: [place] [address]HY: 02/20/2018 Tertiary NOT GIVENUNK [place] Insurance:SELF PAY [facility] Number: Effective Repository Date:2018-02-13 12/23/2017 KOMAL C Primary KOMAL C [place] [id number] [address] Insurance:ANTHEMPolic MARULLODOB: [facility] y Number: [id number] [id number] Repository [address]Bve: (504) Date:6553-69-68ZS [phone] () [id number], [place] [address]KE: 12/23/2017 Secondary KOMAL C [place] Insurance:CARESOURCEP MARULLODOB: [facility] Number: [id number] [id number] Repository Date:2017-12-13 [address]ATTN: [place] [address]FK: 12/23/2017 Tertiary NOT GIVENUNK [place] Insurance:SELF PAY [facility] Number: Effective Repository Date:2017-12-13 08/02/2017 KOMAL C Primary KOMAL C [place] [id number] BOYCE Insurance:ANTHEMPolic MARULLODOB: [facility] y Number: [id number] [id number] Repository 25[address]Feb: (504) Date:3774-86-45XH [phone] () [id number], [place] [address]QS: 08/02/2017 Secondary KOMAL C Alab Insurance:CARESOURCEP MARULLODOB: Community olicy Number: [id number] [facility] [id number] Repository Date:2017-08-01[address]ATTN: [place] [address]QE: 08/02/2017 Tertiary NOT GIVENUNK Clubb Insurance:SELF PAY [facility] Number: Effective Repository Date:2017-08-02 08/01/2017 KOMAL C Primary KOMAL C Alba [id number] BOYCE Insurance:ANTHEMPolic MARULLODOB: Community AYERS y [place]: [id number] [id number] Repository [address]Yhw: (504) Date:9187-77-28FX [phone] () [address] [place] [address]UQ: 08/01/2017 Secondary KOMAL C Alba Insurance:CARESOURCEP MARULLODOB: [facility] Number: [id number] [facility] [id number] Repository Date:2017-08-01[address]ATTN: [place] [address]US: 08/01/2017 Tertiary NOT GIVENUNK Clubb Insurance:SELF PAY [facility] Number: Effective Repository Date:2017-08-01 08/01/2017 KOMAL C Primary KOMAL C Clubb [id number] BOYCE Insurance:ANTHEMPolic MARULLODOB: Community AYERS y [place]: [id number] [id number] Repository [address]Ftx: (504) Date:0839-53-61EY [phone] () [address] [place] [address]DH: 08/01/2017 Secondary KOMAL C Clubb Insurance:CARESOURCEP MARULLODOB: [facility] oly Number: [id number] Hospital [id number] Repository Date:2017-08-01[address]ATTN: [facility] [place] [address]GQ: 08/01/2017 Tertiary NOT GIVENUNK Clubb Insurance:SELF PAY [facility] Number: Effective Repository Date:2017-08-01 08/01/2017 KOMAL C Primary KOMAL [id number] BOYCE Insurance:ANTHEMPolic MARULLODOB: Community AYERS y [place]: [id number] [id number] Repository [address]Jtt: (504) Date:5694-48-97AW [phone] () [id number] [place] [address]WC: 08/01/2017 Secondary KOMAL C Clubb Insurance:CARESOURCEP MARULLODOB: Community oly Number: [id number] [facility] [id number] Repository Date:2017-08-01[address]ATTN: [place] [address]CN: 08/01/2017 Tertiary NOT GIVENUNK Al[place] Insurance:SELF PAY [facility] Number: Effective Repository Date:2017-08-01 08/01/2017 KOMAL C Primary KOMAL Willis [id number] BOYCE Insurance:ANTHEMPolic MARULLODOB: Community AYERS y [place]: [id number] [id number] Repository [address]Otg: (504) Date:9559-94-52IO [phone] () [place], [place] [address]OK: 08/01/2017 Secondary KOMAL C Clubb Insurance:CARESOURCEP MARULLODOB: Community olicy Number: [id number] [facility] [id number] Repository Date:2017-08-01[address]ATTN: [place] [address]EK: 08/01/2017 Tertiary NOT GIVENUNK Clubb Insurance:SELF PAY [facility] Number: Effective Repository Date:2017-08-01
== END 2018-03-20 15:23 | disposition home or self-care (01) ==
LOC: SDC 09:58 → AC 10:00
PROVIDERS: Referring Provider Otolaryngology; Visit Provider Otolaryngology
PROC: (CPT 31253; principal; 2018-03-20 11:30)
DX: J32.4 Chronic pansinusitis (principal); J33.8 Other polyp of sinus; J30.1 Allergic rhinitis due to pollen; J30.81 Allergic rhinitis due to animal (cat) (dog) hair and dander; J30.89 Other allergic rhinitis; J44.9 Chronic obstructive pulmonary disease, unspecified; F32.9 Major depressive disorder, single episode, unspecified; F41.9 Anxiety disorder, unspecified; Z86.718 Personal history of other venous thrombosis and embolism; Z79.899 Other long term (current) drug therapy
CPT/HCPCS: 00160; 31253; 31256; 31257; 36415; 80048; 85027; 88305; 93005; J7120; J2405